=== PATIENT | female | born 1935 | race Caucasian/White ===

== ENCOUNTER 2016-02-14 12:16 | Emergency (ER) | payer MEDICARE ==
[~2016-02-14 12:16] MED LIST: ALEV220T26 PO; IBUP60TA PO; KEFL500C7 PO; LEVA750T PO; LEVO500T32 PO; LORT5TAB PO; LOVE0.4I2 SC; NO MEDICATIONS; NORC5TAB PO; TAMO20TA4 PO; TYLE325T5 PO; VITMTA PO; ZOFR20TA PO
--- NOTE | 2016-02-14 14:00 | REP ---
Clinical: Cough and chills . Comparison: 07/18/2015 . Technique: PA and lateral. Findings: The mediastinum and cardiac silhouette are normal. The lung mao demonstrate chronic stable changes without acute consolidation, effusion, or pneumothorax. The skeletal structures demonstrate osteopenia and degenerative change. Impression: 1. No acute cardiopulmonary process. Signed by Eddie Mclaughlin MD 02/14/2016 01:51 P
--- NOTE | 2016-02-14 14:37 | EDDOCDS ---
Nurse's Notes [facility] Name: Daina Cardenas Age: 80 yrs Sex: Female : 1935 Arrival Date: 02/14/2016 Time: 12:16 Bed TR7 Private MD: Garrison Florian H. Diagnosis: Acute upper respiratory infection, unspecified;Hematuria-reported, intermittent Presentation: 02/13 12:36 Presenting complaint: Patient states: that she hasn't been feeling well lately, nausea, ms18 headache and tired, sneezing, runny nose. Adult Sepsis Screening: The patient does not have new or worsening altered mentation. Patient's respiratory rate is less than 22. Systolic blood pressure is greater than 100. Patient has a qSOFA score of 0- Negative Sepsis Screen. Suicide/Homicide risk assessment- the patient denies having any suicidal and/or homicidal ideations and does not present with any other emotional, behavioral or mental health complaints. Status: Patient is not a vice president consulting services or dependent. Transition of care: patient was not received from another setting of care. 12:36 Acuity: NITIN Level 4 ms18 12:36 Method Of Arrival: Walkin/Carried/Asstd ms18 Triage Assessment: 12:39 General: Appears in no apparent distress, comfortable, Behavior is appropriate for age, ms18 cooperative. Pain: Denies pain. Neurological: No deficits noted. Respiratory: Airway is patent Respiratory effort is even, unlabored. Derm: Skin is pink, warm & dry. normal. Historical: - Allergies: no known allergies; - Home Meds: 1. warfarin 5 mg Oral tab 1 tab once daily 2.5 mg on sunday 2. potassium chloride 10 mEq Oral cpER 1 cap 2 times per day 3. budesonide 3 mg oral CECX 2 caps once daily 4. Culturelle 10 billion cell oral cap daily 5. letrozole 2.5 mg oral tab 1 tab once daily 6. Lialda 1.2 gram oral TbEC 3 tabs once daily - PMHx: Cancer, Breast - Right; Diverticulitis; Crohn's; hypokalemia; pleural effusion; Pneumonia; Pulmonary Embolism; Ulcerative Colitis; - PSHx: Hysterectomy; Mastectomy- Right; - Social history: Smoking status: Patient states former smoker of tobacco. No barriers to communication noted, The patient speaks fluent Kosovan. - Family history: Not pertinent. - : The pt / caregiver states he / she is on anticoagulants: coumadin. Home medication list is obtained from the patient. - Exposure Risk Screening:: None identified. Screenin:33 Screening information is obtained from the patient. Fall risk: No risks identified. ms18 Assistance ADL's: requires no assistance with activities of daily living. Abuse/DV Screen: The patient / caregiver reports he/she is: not in a situation that causes fear, pain or injury. Nutritional screening: No deficits noted. Advance Directives: There is no living will. home support is adequate. Assessment: 14:07 General: Appears in no apparent distress, comfortable. Neurological: Level of ms18 Consciousness is awake, alert, obeys commands, Oriented to person, place, time. Respiratory: Airway is patent Respiratory effort is even, unlabored. Derm: Skin is pink, warm & dry. 14:33 General: Appears in no apparent distress, comfortable, Behavior is appropriate for age, ms18 cooperative. Pain: Denies pain. Neurological: No deficits noted. Respiratory: Airway is patent Respiratory effort is even, unlabored. Derm: Skin is pink, warm & dry. normal. Vital Signs: 12:17 BP 132 / 73; Pulse 86; Resp 18 S; Temp 97.4(O); Pulse Ox 98% on R/A; Weight 61.23 kg gr2 (R); Height 5 ft. 2 in. (157.48 cm) (R); Pain 3/10; 14:29 BP 122 / 70; Pulse 72; Resp 18; Temp 97.1(O); Pulse Ox 96% on R/A; Pain 0/10; ct3 12:17 Body Mass Index 24.69 (61.23 kg, 157.48 cm) gr2 Vitals: 12:17 Log In Time: February 14, 2016 at 12:17. gr2 ED Course: 12:16 Patient visited by Hilary Canales. gr2 12:16 Patient moved to Waiting gr2 12:17 Garrison Florian is Private Physician. gr2 12:18 Patient visited by Hilary Canales. gr2 12:19 Patient moved to Pre RCE gr2 12:37 Triage Initiated ms18 12:45 Patient moved to Triage 3 ct3 13:14 Alfred Mae PA-C is PHCP. ar2 13:14 Nimisha Mcgovern MD is Attending Physician. ar2 13:16 Patient visited by Alfred Mae PA-C. ar2 13:32 Patient moved to TR1 ct3 13:36 -Influenza A&B Rapid Antigen - Nose Sent. ms18 13:36 Urine Culture Sent. ms18 13:36 UA Sent. ms18 13:45 [facility] [place] Payment Agreement was scanned into [employer] and attached to record. jp5 13:58 Patient moved to PD dem1 14:07 Patient visited by Jacqui Wilburn RN. ms18 14:19 Chest, 2 View (pa\E\lat) Returned. EDMS 14:23 Casey Tipton is Referral Physician. ar2 14:23 Garrison Florian is Referral Physician. ar2 14:29 Patient visited by Nicole Wray PCA. ct3 14:32 Patient moved to TR7 ct3 14:33 The patient / caregiver is instructed regarding the plan of care and ED course. ms18 Accompanied by Family Member, Patient has correct armband on for positive identification. Property :Personal belongings accompany Pt. 14:33 No IV's were initiated during this patient's visit. No procedures done that require ms18 assistance. Order Results: Lab Order: UA; SPEC'M 02/14/16 13:32 Test: APPEARANCE, URINE; Value: HAZY; Range: CLEAR; Status: F Test: COLOR, URINE; Value: YELLOW; Range: YELLOW; Status: F Test: PH,URINE; Value: 5.0; Range: 5.0-9.0; Units: UNITS; Status: F Test: SPECIFIC GRAVITY URINE AUTO; Value: 1.020; Range: 1.002-1.035; Status: F Test: PROTEIN, URINE AUTO; Value: 1+; Range: NEGATIVE; Abnormal: Above high normal; Units: mg/dL; Status: F Test: GLUCOSE, URINE (UA) AUTO; Value: NEGATIVE; Range: NEGATIVE; Units: mg/dL; Status: F Test: KETONE, URINE AUTO; Value: NEGATIVE; Range: NEGATIVE; Units: mg/dL; Status: F Test: UROBILINOGEN, URINE AUTO; Value: 2.0; Range: 0.0-2.0; Abnormal: Above high normal; Units: mg/dL; Status: F Test: BILIRUBIN, URINE AUTO; Value: NEGATIVE; Range: NEGATIVE; Status: F Test: NITRITE, URINE AUTO; Value: NEGATIVE; Range: NEGATIVE; Status: F Test: LEUKOCYTE ESTERASE, URINE AUTO; Value: 2+; Range: NEGATIVE; Abnormal: Above high normal; Status: F Test: BLOOD, URINE BLOOD; Value: NEGATIVE; Range: NEGATIVE; Status: F Test: WBC, URINE AUTO; Value: 14; Range: 0-3; Abnormal: Above high normal; Units: /HPF; Status: F Test: RBC, URINE AUTO; Value: 5; Range: 0-3; Abnormal: Above high normal; Units: /HPF; Status: F Test: BACTERIA, URINE AUTO; Value: 2+; Range: NEGATIVE; Abnormal: Above high normal; Status: F Test: SQUAMOUS EPITHELIAL CELL UR AU; Value: 0; Range: 0-6; Units: /HPF; Status: F Test: MUCUS, URINE; Value: SMALL; Range: NEGATIVE; Status: F Test: HYALINE CAST, URINE AUTO; Value: 0; Range: 0-1; Units: /LPF; Status: F Lab Order: -Influenza A&B Rapid Antigen - Nose; SPEC'M 02/14/16 13:32 Test: INFLUENZA A RAPID SCR by ICA; Value: INFLUENZA A RESULTS NEGATIVE; Status: F Test: INFLUENZA A RAPID SCR by ICA; Value: Comments:; Status: F Test: INFLUENZA B RAPID SCR by ICA; Value: INFLUENZA B RESULTS NEGATIVE; Status: F Test Note: ; The Influenza test is a direct rapid immunoassay for the qualitative detection of Influenza viral antigen. Cell culture (Viral Culture) testing should be considered to confirm NEGATIVE results and to assist in detecting other viruses that can provide similar clinical symptoms. Please contact the lab within 24 hours ([phone]) if confirmatory testing is desired. Radiology Order: Chest, 2 View (pa\E\lat) Test: Chest, 2 View (pa\E\lat) REASON FOR EXAMINATION: cough, chills; Clinical: Cough and chills .; ; Comparison: 07/18/2015 .; ; Technique: PA and lateral.; ; Findings:; The mediastinum and cardiac silhouette are normal. The lung mao demonstrate; chronic stable changes without acute consolidation, effusion, or pneumothorax.; The skeletal structures demonstrate osteopenia and degenerative change.; ; Impression:; 1. No acute cardiopulmonary process.; ; ; Signed by; Eddie Mclaughlin MD 02/14/2016 01:51 P; Outcome: 14:24 Discharge ordered by Provider. ar2 14:33 Discharge Assessment: Patient awake, alert and oriented x 3. No cognitive and/or ms18 functional deficits noted. Patient verbalized understanding of disposition instructions. patient administered narcotics - no. The following High Risk Discharge criteria are identified: None. Discharged to home ambulatory. Condition: good Condition: stable Condition: improved. Discharge instructions given to patient, Instructed on discharge instructions, follow up and referral plans. medication usage, Demonstrated understanding of instructions, medications, Pt was receptive of discharge instructions/ teaching. Prescriptions given X 1. No special radiology studies were completed. 14:36 Patient left the ED. ms18 Signatures: Dispatcher [employer] EDMS Alfred Mae, PARoland PA-C ar2 Nicole Wray, STRUCTURES ENGINEER STRUCTURES ENGINEER ct3 Eduin Cardona1 Hilary Canales gr2 Jacqui Wilburn,TITUS RN ms18 David Ritchie jp5 [facility] CENTERD[facility]
--- NOTE | 2016-02-14 14:38 | EDDOCDS ---
Physician Documentation [facility] Name: Daina Cardenas Age: 80 yrs Sex: Female : 1935 Arrival Date: 02/14/2016 Time: 12:16 Bed TR7 Private MD: Garrison Florian H. Disposition: 02/14/16 14:24 Discharged to Home/Self Care. Impression: Acute upper respiratory infection, unspecified, Hematuria - reported, intermittent. - Condition is Stable. - Discharge Instructions: Hematuria, Adult, Upper Respiratory Infection, Adult. - Prescriptions for ZOFRAN ODT 4 mg - dissolve 1 tablet by ORAL route 4 times per day As needed do not chew, do not swallow whole; 10 tablet. - Medication Reconciliation, Local Pharmacy Hours form. - Follow up: Casey Tipton; When: Call to arrange an appointment; Reason: Further diagnostic work-up, Recheck today's complaints. Follow up: Garrison Florian; When: 2 - 3 days; Reason: Recheck today's complaints. Follow up: Emergency Department; When: As needed; Reason: Fever > 102F, Worsening of conditions. - Problem is new. - Symptoms are unchanged. Historical: - Allergies: no known allergies; - Home Meds: 1. warfarin 5 mg Oral tab 1 tab once daily 2.5 mg on sunday 2. potassium chloride 10 mEq Oral cpER 1 cap 2 times per day 3. budesonide 3 mg oral CECX 2 caps once daily 4. Culturelle 10 billion cell oral cap daily 5. letrozole 2.5 mg oral tab 1 tab once daily 6. Lialda 1.2 gram oral TbEC 3 tabs once daily - PMHx: Cancer, Breast - Right; Diverticulitis; Crohn's; hypokalemia; pleural effusion; Pneumonia; Pulmonary Embolism; Ulcerative Colitis; - PSHx: Hysterectomy; Mastectomy- Right; - Social history: Smoking status: Patient states former smoker of tobacco. No barriers to communication noted, The patient speaks fluent [place] Islander. - Family history: Not pertinent. - : The pt / caregiver states he / she is on anticoagulants: coumadin. Home medication list is obtained from the patient. - Exposure Risk Screening:: None identified. Vital Signs: 02/13 12:17 BP 132 / 73; Pulse 86; Resp 18 S; Temp 97.4(O); Pulse Ox 98% on R/A; Weight 61.23 kg / gr2 134.99 lbs (R); Height 5 ft. 2 in. (157.48 cm) (R); Pain 3/10; 14:29 BP 122 / 70; Pulse 72; Resp 18; Temp 97.1(O); Pulse Ox 96% on R/A; Pain 0/10; ct3 12:17 Body Mass Index 24.69 (61.23 kg, 157.48 cm) gr2 MDM: 13:24 Obtain sample by nasopharyngeal swab ordered. ar2 13:25 UA Ordered. EDMS 13:25 Urine Culture Ordered. EDMS 13:25 -Influenza A&B Rapid Antigen - Nose Ordered. EDMS 13:25 Chest, 2 View (pa\E\lat) Ordered. EDMS 13:45 [facility] Payment Agreement was scanned into [employer] and attached to record. jp5 13:45 Financial registration complete. jp5 14:08 UA Reviewed. ar2 14:08 -Influenza A&B Rapid Antigen - Nose Reviewed. ar2 Signatures: Dispatcher [employer] EDMS Alfred Mae PA-C PAGonzaloC ar2 Jaqcui Wilburn,RN RN ms18 David Ritchie jp5 The chart was reviewed and I authenticate all verbal orders and agree with the evaluation and treatment provided.Attachments: 13:45 [facility] Payment Agreement jp5 MTDD
--- NOTE | 2016-02-16 15:37 | EDDOCDS ---
Physician Documentation [facility] Name: Daina Cardenas Age: 80 yrs Sex: Female : 1935 Arrival Date: 02/14/2016 Time: 12:16 Bed TR7 Private MD: Garrison Florian H. Disposition: 02/14/16 14:24 Discharged to Home/Self Care. Impression: Acute upper respiratory infection, unspecified, Hematuria - reported, intermittent. - Condition is Stable. - Discharge Instructions: Hematuria, Adult, Upper Respiratory Infection, Adult. - Prescriptions for ZOFRAN ODT 4 mg - dissolve 1 tablet by ORAL route 4 times per day As needed do not chew, do not swallow whole; 10 tablet. - Medication Reconciliation, Local Pharmacy Hours form. - Follow up: Casey Tipton; When: Call to arrange an appointment; Reason: Further diagnostic work-up, Recheck today's complaints. Follow up: Garrison Florian; When: 2 - 3 days; Reason: Recheck today's complaints. Follow up: Emergency Department; When: As needed; Reason: Fever > 102F, Worsening of conditions. - Problem is new. - Symptoms are unchanged. Historical: - Allergies: no known allergies; - Home Meds: 1. warfarin 5 mg Oral tab 1 tab once daily 2.5 mg on sunday 2. potassium chloride 10 mEq Oral cpER 1 cap 2 times per day 3. budesonide 3 mg oral CECX 2 caps once daily 4. Culturelle 10 billion cell oral cap daily 5. letrozole 2.5 mg oral tab 1 tab once daily 6. Lialda 1.2 gram oral TbEC 3 tabs once daily - PMHx: Cancer, Breast - Right; Diverticulitis; Crohn's; hypokalemia; pleural effusion; Pneumonia; Pulmonary Embolism; Ulcerative Colitis; - PSHx: Hysterectomy; Mastectomy- Right; - Social history: Smoking status: Patient states former smoker of tobacco. No barriers to communication noted, The patient speaks fluent Iraqi. - Family history: Not pertinent. - : The pt / caregiver states he / she is on anticoagulants: coumadin. Home medication list is obtained from the patient. - Exposure Risk Screening:: None identified. Vital Signs: 02/13 12:17 BP 132 / 73; Pulse 86; Resp 18 S; Temp 97.4(O); Pulse Ox 98% on R/A; Weight 61.23 kg / gr2 134.99 lbs (R); Height 5 ft. 2 in. (157.48 cm) (R); Pain 3/10; 14:29 BP 122 / 70; Pulse 72; Resp 18; Temp 97.1(O); Pulse Ox 96% on R/A; Pain 0/10; ct3 12:17 Body Mass Index 24.69 (61.23 kg, 157.48 cm) gr2 MDM: 13:24 Obtain sample by nasopharyngeal swab ordered. ar2 13:25 UA Ordered. EDMS 13:25 Urine Culture Ordered. EDMS 13:25 -Influenza A&B Rapid Antigen - Nose Ordered. EDMS 13:25 Chest, 2 View (pa\E\lat) Ordered. EDMS 13:45 [facility] Payment Agreement was scanned into [employer] and attached to record. jp5 13:45 Financial registration complete. jp5 14:08 UA Reviewed. ar2 14:08 -Influenza A&B Rapid Antigen - Nose Reviewed. ar2 02/14 06:40 T-Sheet-- Draft Copy was scanned into [employer] and attached to record. lja 10:49 Radiology Report was scanned into [employer] and attached to record. gb Signatures: Dispatcher [employer] EDMN Miguelina Thrasher, Reg Reg Alfred Evangelista, PAGonzaloC PAGonzaloC ar2 Jacqui Wilburn,RN RN ms18 Arel, David Blue jp5 The chart was reviewed and I authenticate all verbal orders and agree with the evaluation and treatment provided.Attachments: 02/13 13:45 [facility] Payment Agreement 5 02/14 06:40 T-Sheet-- Draft Copy lja Chart Complete MTDD
--- NOTE | 2016-02-16 15:37 | EDDOCDS ---
Physician Documentation [facility] Name: Daina Cardenas Age: 80 yrs Sex: Female : 1935 Arrival Date: 02/14/2016 Time: 12:16 Bed TR7 Private MD: Garrison Florian H. Disposition: 02/14/16 14:24 Discharged to Home/Self Care. Impression: Acute upper respiratory infection, unspecified, Hematuria - reported, intermittent. - Condition is Stable. - Discharge Instructions: Hematuria, Adult, Upper Respiratory Infection, Adult. - Prescriptions for ZOFRAN ODT 4 mg - dissolve 1 tablet by ORAL route 4 times per day As needed do not chew, do not swallow whole; 10 tablet. - Medication Reconciliation, Local Pharmacy Hours form. - Follow up: Casey Tipton; When: Call to arrange an appointment; Reason: Further diagnostic work-up, Recheck today's complaints. Follow up: Garrison Florian; When: 2 - 3 days; Reason: Recheck today's complaints. Follow up: Emergency Department; When: As needed; Reason: Fever > 102F, Worsening of conditions. - Problem is new. - Symptoms are unchanged. Historical: - Allergies: no known allergies; - Home Meds: 1. warfarin 5 mg Oral tab 1 tab once daily 2.5 mg on sunday 2. potassium chloride 10 mEq Oral cpER 1 cap 2 times per day 3. budesonide 3 mg oral CECX 2 caps once daily 4. Culturelle 10 billion cell oral cap daily 5. letrozole 2.5 mg oral tab 1 tab once daily 6. Lialda 1.2 gram oral TbEC 3 tabs once daily - PMHx: Cancer, Breast - Right; Diverticulitis; Crohn's; hypokalemia; pleural effusion; Pneumonia; Pulmonary Embolism; Ulcerative Colitis; - PSHx: Hysterectomy; Mastectomy- Right; - Social history: Smoking status: Patient states former smoker of tobacco. No barriers to communication noted, The patient speaks fluent Jordanian. - Family history: Not pertinent. - : The pt / caregiver states he / she is on anticoagulants: coumadin. Home medication list is obtained from the patient. - Exposure Risk Screening:: None identified. Vital Signs: 02/13 12:17 BP 132 / 73; Pulse 86; Resp 18 S; Temp 97.4(O); Pulse Ox 98% on R/A; Weight 61.23 kg / gr2 134.99 lbs (R); Height 5 ft. 2 in. (157.48 cm) (R); Pain 3/10; 14:29 BP 122 / 70; Pulse 72; Resp 18; Temp 97.1(O); Pulse Ox 96% on R/A; Pain 0/10; ct3 12:17 Body Mass Index 24.69 (61.23 kg, 157.48 cm) gr2 MDM: 13:24 Obtain sample by nasopharyngeal swab ordered. ar2 13:25 UA Ordered. EDMS 13:25 Urine Culture Ordered. EDMS 13:25 -Influenza A&B Rapid Antigen - Nose Ordered. EDMS 13:25 Chest, 2 View (pa\E\lat) Ordered. EDMS 13:45 [facility] Payment Agreement was scanned into [email or web address] and attached to record. jp5 13:45 Financial registration complete. jp5 14:08 UA Reviewed. ar2 14:08 -Influenza A&B Rapid Antigen - Nose Reviewed. ar2 02/14 06:40 T-Sheet-- Draft Copy was scanned into [email or web address] and attached to record. lja 10:49 Radiology Report was scanned into [email or web address] and attached to record. gb Signatures: Dispatcher [employer] EDKS Miguelina Thrasher, Reg Reg Alfred Evangelista, PAGonzaloC PAGonzaloC ar2 Jacqui Wilburn,RN RN ms18 Arel, David Blue jp5 The chart was reviewed and I authenticate all verbal orders and agree with the evaluation and treatment provided.Attachments: 02/13 13:45 [facility] Payment Agreement 5 02/14 06:40 T-Sheet-- Draft Copy lja Chart Complete MTDD
--- NOTE | 2016-02-16 15:38 | EDDOCDS ---
Nurse's Notes [facility] Name: Daina Cardenas Age: 80 yrs Sex: Female : 1935 Arrival Date: 02/14/2016 Time: 12:16 Bed TR7 Private MD: Garrison Florian H. Diagnosis: Acute upper respiratory infection, unspecified;Hematuria-reported, intermittent Presentation: 02/13 12:36 Presenting complaint: Patient states: that she hasn't been feeling well lately, nausea, ms18 headache and tired, sneezing, runny nose. Adult Sepsis Screening: The patient does not have new or worsening altered mentation. Patient's respiratory rate is less than 22. Systolic blood pressure is greater than 100. Patient has a qSOFA score of 0- Negative Sepsis Screen. Suicide/Homicide risk assessment- the patient denies having any suicidal and/or homicidal ideations and does not present with any other emotional, behavioral or mental health complaints. Status: Patient is not a answering service agent or dependent. Transition of care: patient was not received from another setting of care. 12:36 Acuity: NITIN Level 4 ms18 12:36 Method Of Arrival: Walkin/Carried/Asstd ms18 Triage Assessment: 12:39 General: Appears in no apparent distress, comfortable, Behavior is appropriate for age, ms18 cooperative. Pain: Denies pain. Neurological: No deficits noted. Respiratory: Airway is patent Respiratory effort is even, unlabored. Derm: Skin is pink, warm & dry. normal. Historical: - Allergies: no known allergies; - Home Meds: 1. warfarin 5 mg Oral tab 1 tab once daily 2.5 mg on sunday 2. potassium chloride 10 mEq Oral cpER 1 cap 2 times per day 3. budesonide 3 mg oral CECX 2 caps once daily 4. Culturelle 10 billion cell oral cap daily 5. letrozole 2.5 mg oral tab 1 tab once daily 6. Lialda 1.2 gram oral TbEC 3 tabs once daily - PMHx: Cancer, Breast - Right; Diverticulitis; Crohn's; hypokalemia; pleural effusion; Pneumonia; Pulmonary Embolism; Ulcerative Colitis; - PSHx: Hysterectomy; Mastectomy- Right; - Social history: Smoking status: Patient states former smoker of tobacco. No barriers to communication noted, The patient speaks fluent Indian. - Family history: Not pertinent. - : The pt / caregiver states he / she is on anticoagulants: coumadin. Home medication list is obtained from the patient. - Exposure Risk Screening:: None identified. Screenin:33 Screening information is obtained from the patient. Fall risk: No risks identified. ms18 Assistance ADL's: requires no assistance with activities of daily living. Abuse/DV Screen: The patient / caregiver reports he/she is: not in a situation that causes fear, pain or injury. Nutritional screening: No deficits noted. Advance Directives: There is no living will. home support is adequate. Assessment: 14:07 General: Appears in no apparent distress, comfortable. Neurological: Level of ms18 Consciousness is awake, alert, obeys commands, Oriented to person, place, time. Respiratory: Airway is patent Respiratory effort is even, unlabored. Derm: Skin is pink, warm & dry. 14:33 General: Appears in no apparent distress, comfortable, Behavior is appropriate for age, ms18 cooperative. Pain: Denies pain. Neurological: No deficits noted. Respiratory: Airway is patent Respiratory effort is even, unlabored. Derm: Skin is pink, warm & dry. normal. Vital Signs: 12:17 BP 132 / 73; Pulse 86; Resp 18 S; Temp 97.4(O); Pulse Ox 98% on R/A; Weight 61.23 kg gr2 (R); Height 5 ft. 2 in. (157.48 cm) (R); Pain 3/10; 14:29 BP 122 / 70; Pulse 72; Resp 18; Temp 97.1(O); Pulse Ox 96% on R/A; Pain 0/10; ct3 12:17 Body Mass Index 24.69 (61.23 kg, 157.48 cm) gr2 Vitals: 12:17 Log In Time: February 14, 2016 at 12:17. gr2 ED Course: 12:16 Patient visited by Hilary Canales. gr2 12:16 Patient moved to Waiting gr2 12:17 Garrison Florian is Private Physician. gr2 12:18 Patient visited by Hilary Canales. gr2 12:19 Patient moved to Pre RCE gr2 12:37 Triage Initiated ms18 12:45 Patient moved to Triage 3 ct3 13:14 Alfred Mae PA-C is PHCP. ar2 13:14 Nimisha Mcgovern MD is Attending Physician. ar2 13:16 Patient visited by Alfred Mae PA-C. ar2 13:32 Patient moved to TR1 ct3 13:36 -Influenza A&B Rapid Antigen - Nose Sent. ms18 13:36 Urine Culture Sent. ms18 13:36 UA Sent. ms18 13:45 [facility] [place] was scanned into zulily and attached to record. jp5 13:58 Patient moved to PD dem1 14:07 Patient visited by Jacqui Wilburn RN. ms18 14:19 Chest, 2 View (pa\E\lat) Returned. EDMS 14:23 Casey Tipton is Referral Physician. ar2 14:23 Garrison Florian is Referral Physician. ar2 14:29 Patient visited by Nicole Wray PCA. ct3 14:32 Patient moved to TR7 ct3 14:33 The patient / caregiver is instructed regarding the plan of care and ED course. ms18 Accompanied by Family Member, Patient has correct armband on for positive identification. Property :Personal belongings accompany Pt. 14:33 No IV's were initiated during this patient's visit. No procedures done that require ms18 assistance. 02/14 06:40 T-Sheet-- Draft Copy was scanned into zulily and attached to record. lja 10:49 Radiology Report was scanned into zulily and attached to record. gb Order Results: Lab Order: UA; SPEC'M 02/14/16 13:32 Test: APPEARANCE, URINE; Value: HAZY; Range: CLEAR; Status: F Test: COLOR, URINE; Value: YELLOW; Range: YELLOW; Status: F Test: PH,URINE; Value: 5.0; Range: 5.0-9.0; Units: UNITS; Status: F Test: SPECIFIC GRAVITY URINE AUTO; Value: 1.020; Range: 1.002-1.035; Status: F Test: PROTEIN, URINE AUTO; Value: 1+; Range: NEGATIVE; Abnormal: Above high normal; Units: mg/dL; Status: F Test: GLUCOSE, URINE (UA) AUTO; Value: NEGATIVE; Range: NEGATIVE; Units: mg/dL; Status: F Test: KETONE, URINE AUTO; Value: NEGATIVE; Range: NEGATIVE; Units: mg/dL; Status: F Test: UROBILINOGEN, URINE AUTO; Value: 2.0; Range: 0.0-2.0; Abnormal: Above high normal; Units: mg/dL; Status: F Test: BILIRUBIN, URINE AUTO; Value: NEGATIVE; Range: NEGATIVE; Status: F Test: NITRITE, URINE AUTO; Value: NEGATIVE; Range: NEGATIVE; Status: F Test: LEUKOCYTE ESTERASE, URINE AUTO; Value: 2+; Range: NEGATIVE; Abnormal: Above high normal; Status: F Test: BLOOD, URINE BLOOD; Value: NEGATIVE; Range: NEGATIVE; Status: F Test: WBC, URINE AUTO; Value: 14; Range: 0-3; Abnormal: Above high normal; Units: /HPF; Status: F Test: RBC, URINE AUTO; Value: 5; Range: 0-3; Abnormal: Above high normal; Units: /HPF; Status: F Test: BACTERIA, URINE AUTO; Value: 2+; Range: NEGATIVE; Abnormal: Above high normal; Status: F Test: SQUAMOUS EPITHELIAL CELL UR AU; Value: 0; Range: 0-6; Units: /HPF; Status: F Test: MUCUS, URINE; Value: SMALL; Range: NEGATIVE; Status: F Test: HYALINE CAST, URINE AUTO; Value: 0; Range: 0-1; Units: /LPF; Status: F Lab Order: Urine Culture; SPEC'M 02/14/16 13:32 Test: URINE CULTURE; Value: URINE CULTURE RESULT SPECIMEN APPEARS CONTAMINATED; Status: F Lab Order: -Influenza A&B Rapid Antigen - Nose; SPEC'M 02/14/16 13:32 Test: INFLUENZA A RAPID SCR by ICA; Value: INFLUENZA A RESULTS NEGATIVE; Status: F Test: INFLUENZA A RAPID SCR by ICA; Value: Comments:; Status: F Test: INFLUENZA B RAPID SCR by ICA; Value: INFLUENZA B RESULTS NEGATIVE; Status: F Test Note: ; The Influenza test is a direct rapid immunoassay for the qualitative detection of Influenza viral antigen. Cell culture (Viral Culture) testing should be considered to confirm NEGATIVE results and to assist in detecting other viruses that can provide similar clinical symptoms. Please contact the lab within 24 hours ([phone]) if confirmatory testing is desired. Radiology Order: Chest, 2 View (pa\E\lat) Test: Chest, 2 View (pa\E\lat) REASON FOR EXAMINATION: cough, chills; Clinical: Cough and chills .; ; Comparison: 07/18/2015 .; ; Technique: PA and lateral.; ; Findings:; The mediastinum and cardiac silhouette are normal. The lung mao demonstrate; chronic stable changes without acute consolidation, effusion, or pneumothorax.; The skeletal structures demonstrate osteopenia and degenerative change.; ; Impression:; 1. No acute cardiopulmonary process.; ; ; Signed by; Eddie Mclaughlin MD 02/14/2016 01:51 P; Outcome: 02/13 14:24 Discharge ordered by Provider. ar2 14:33 Discharge Assessment: Patient awake, alert and oriented x 3. No cognitive and/or ms18 functional deficits noted. Patient verbalized understanding of disposition instructions. patient administered narcotics - no. The following High Risk Discharge criteria are identified: None. Discharged to home ambulatory. Condition: good Condition: stable Condition: improved. Discharge instructions given to patient, Instructed on discharge instructions, follow up and referral plans. medication usage, Demonstrated understanding of instructions, medications, Pt was receptive of discharge instructions/ teaching. Prescriptions given X 1. No special radiology studies were completed. 14:36 Patient left the ED. ms18 Signatures: Dispatcher [employer] EDMS Miguelina Thrasher, Reg Reg gb Alfred Mae, PA-C PA-C ar2 Nicole Wray, SRIDHAR SINTER FEEDER ct3 Eduin Cardona1 Hilary Canales gr2 Jacqui Wilburn,TITUS RN ms18 Arel, David Blue jp5 Chart Complete MTDD
== END 2016-02-14 14:36 | disposition home or self-care (01) ==
LOC: M ED 12:16
DX: R31.9 Hematuria, unspecified (principal); J06.9 Acute upper respiratory infection, unspecified; K50.90 Crohn's disease, unspecified, without complications; K57.93 Diverticulitis of intestine, part unspecified, without perforation or abscess with bleeding; E87.6 Hypokalemia; Z85.3 Personal history of malignant neoplasm of breast; Z90.11 Acquired absence of right breast and nipple; Z86.711 Personal history of pulmonary embolism; Z87.891 Personal history of nicotine dependence; Z79.01 Long term (current) use of anticoagulants; Z79.899 Other long term (current) drug therapy; Z87.09 Personal history of other diseases of the respiratory system

== ENCOUNTER → 2016-03-03 | Outpatient (CLI) | payer MEDICARE | LOC: M LAB 14:32 | PROVIDERS: ATTEND Internal Medicine Gastroenterology | DX: K51.90 Ulcerative colitis, unspecified, without complications (principal) ==

== ENCOUNTER → 2016-05-01 | Outpatient (REF) | payer MEDICARE | LOC: M LAB REF 16:56 | PROVIDERS: ATTEND Obstetrics & Gynecology | DX: R39.89 Other symptoms and signs involving the genitourinary system (principal) ==

== ENCOUNTER → 2016-05-10 | Outpatient (REF) | payer MEDICARE | LOC: M LAB REF 17:08 | PROVIDERS: ATTEND Obstetrics & Gynecology | DX: R39.89 Other symptoms and signs involving the genitourinary system (principal); R31.9 Hematuria, unspecified ==

== ENCOUNTER → 2017-11-09 | Outpatient (CLI) | payer MEDICARE ==
[2017-11-09 13:56] LABS: INR 2.82; PROTHROMBIN TIME 30.3 SECONDS (12.1-14.4)
== END ==
LOC: M LAB 13:02
DX: Z51.81 Encounter for therapeutic drug level monitoring (principal); Z79.01 Long term (current) use of anticoagulants
CPT/HCPCS: 85610

== ENCOUNTER 2017-11-30 22:08 | Observation (INO) | payer MEDICARE ==
[2017-11-30] MEDS: NS 500 ML IV (23:20)
[2017-11-30] MEDS: ONDANSETRON 4MG/2ML VIAL (J2405) IV (23:58)
[2017-12-01 00:15] LABS: BASO % 0.2 % (0.0-1.0); EOS # 0.1 10^3/uL (0.0-0.50); EOS % 0.7 % (0.0-3.0); HEMATOCRIT 37.1 % (36.0-47.0); HEMOGLOBIN 12.6 g/dl (12.0-15.5); IMMATURE GRANULOCYTE % 0.5 % (0-3.0); LYMPH # 1.8 10^3/uL (1.5-4.5); LYMPH % 10.6 % (24.0-44.0); MEAN CORPUSCULAR HEMOGLOBIN 32.7 pg (27.0-33.0); MEAN CORPUSCULAR VOLUME 96.4 fl (80.0-96.0); MONO # 1.6 10^3/uL (0.0-0.8); MONO % 9.5 % (0.0-5.0); NEUTROPHILS % 78.5 % (36.0-66.0); PLATELET COUNT, AUTOMATED 259 10^3/uL (150-450); RED BLOOD COUNT 3.85 10^6/uL (4.00-5.40); RED CELL DISTRIBUTION WIDTH 13.8 % (11.5-14.5); VENOUS BASE EXCESS -0.3 (-2.0-2.0); VENOUS HCO3 24.9 MEQ/L (23.0-27.0); VENOUS O2 SATURATION 57.8 % (60.0-80.0); VENOUS PARTIAL PRESSURE CO2 42.8 mmHg (38.0-50.0); VENOUS PARTIAL PRESSURE O2 28.8 mmHg (30.0-50.0); VENOUS PH 7.382 UNITS (7.330-7.430); VENOUS STANDARD HCO3 23.3 MEQ/L; VENOUS TOTAL CO2 26.2 MEQ/L (24.0-28.0); WHITE BLOOD COUNT 16.5 10^3/uL (4.0-10.0)
[2017-12-01 00:33] LABS: INR 2.54; PROTHROMBIN TIME 27.9 SECONDS (12.1-14.4)
[2017-12-01 00:34] LABS: PARTIAL THROMBOPLASTIN TIME 40.7 SECONDS (25.4-37.6)
[2017-12-01 00:41] LABS: ALBUMIN 3.4 GM/DL (3.2-5.2); ALBUMIN/GLOBULIN RATIO 0.85 (1.00-1.93); ALKALINE PHOSPHATASE 89 U/L (45-117); ALT/SGPT 18 U/L (12-78); AMYLASE 78 U/L (25-115); ANION GAP 11 MEQ/L (8-16); AST/SGOT 17 U/L (7-37); BILIRUBIN,DIRECT < 0.1 MG/DL (0.0-0.2); BILIRUBIN,TOTAL 0.2 MG/DL (0.2-1.0); BLOOD UREA NITROGEN 22 MG/DL (7-18); CALCIUM LEVEL 8.3 MG/DL (8.8-10.2); CARBON DIOXIDE LEVEL 24 MEQ/L (21-32); CHLORIDE LEVEL 104 MEQ/L (98-107); CPK CREATINE PHOSPHOKINASE 100 U/L (26-192); GLOMERULAR FILTRATION RATE 38.2 (>32); GLUCOSE, FASTING 88 MG/DL (70-100); LIPASE 220 U/L (73-393); POTASSIUM SERUM 4.4 MEQ/L (3.5-5.1); SODIUM LEVEL 139 MEQ/L (136-145); TOTAL PROTEIN 7.4 GM/DL (6.4-8.2); TROPONIN I < 0.02 NG/ML (< 0.10)
[2017-12-01] MEDS ORDERED: ISOVUE-370 76% 100ML VIAL (Q9967) As Ordered (00:44)
[2017-12-01] MEDS: NS 500 ML IV (01:42)
[2017-12-01] MEDS ORDERED: ONDANSETRON 4MG/2ML VIAL (J2405) IV (02:45)
[2017-12-01] MEDS ORDERED: ACETAMINOPHEN TAB 650MG DOSE (2X325MG) PO (02:45)
[2017-12-01] MEDS: NS 1,000 ML IV ×3 (03:56→20:42)
[2017-12-01 04:16] LABS: KETONE, URINE AUTO RFX NEGATIVE (NEGATIVE); LEUKOCYTE ESTERASE UR AUTO RFX 2+ (NEGATIVE); NITRITE, URINE AUTO RFX POSITIVE (NEGATIVE); RBC, URINE AUTO RFX 1 /HPF (0-3); SPECIFIC GRAVITY UR AUTO RFX 1.043 (1.002-1.035); SQUAM EPITHELIAL CELL UR AURFX 1 /HPF (0-6); WBC, URINE AUTO RFX 8 /HPF (0-3)
[2017-12-01 06:23] LABS: HEMATOCRIT 33.9 % (36.0-47.0); MEAN CORPUSCULAR HEMOGLOBIN 31.8 pg (27.0-33.0); MEAN CORPUSCULAR HGB CONC 32.4 g/dl (32.0-36.5); PLATELET COUNT, AUTOMATED 210 10^3/uL (150-450); RED BLOOD COUNT 3.46 10^6/uL (4.00-5.40); RED CELL DISTRIBUTION WIDTH 13.8 % (11.5-14.5); WHITE BLOOD COUNT 10.8 10^3/uL (4.0-10.0)
[2017-12-01 06:48] LABS: ANION GAP 7 MEQ/L (8-16); BLOOD UREA NITROGEN 16 MG/DL (7-18); CALCIUM LEVEL 7.8 MG/DL (8.8-10.2); CARBON DIOXIDE LEVEL 25 MEQ/L (21-32); CHLORIDE LEVEL 110 MEQ/L (98-107); CREATININE FOR GFR 1.06 MG/DL (0.55-1.30); GLOMERULAR FILTRATION RATE 52.7 (>32); GLUCOSE, FASTING 86 MG/DL (70-100); POTASSIUM SERUM 4.1 MEQ/L (3.5-5.1); SODIUM LEVEL 142 MEQ/L (136-145)
[2017-12-01] MEDS: LETROZOLE 2.5 MG TAB PO (10:00)
[2017-12-01] MEDS: FERROUS SULFATE 325MG TAB PO (10:00)
[2017-12-01] MEDS: POTASSIUM CHLORIDE 10 MEQ SR TABLET PO ×2 (10:01→20:24)
[2017-12-01] MEDS: MESALAMINE 400 MG CAPSULE DELAYED RELEASE (DELZICOL) PO ×2 (16:46→20:41)
[2017-12-01] MEDS: WARFARIN SOD 5 MG TAB PO (16:46)
[2017-12-02 04:39] LABS: HEMOGLOBIN 9.7 g/dl (12.0-15.5); MEAN CORPUSCULAR HEMOGLOBIN 32.4 pg (27.0-33.0); MEAN CORPUSCULAR HGB CONC 32.3 g/dl (32.0-36.5); MEAN CORPUSCULAR VOLUME 100.3 fl (80.0-96.0); PLATELET COUNT, AUTOMATED 196 10^3/uL (150-450); RED BLOOD COUNT 2.99 10^6/uL (4.00-5.40); RED CELL DISTRIBUTION WIDTH 14.2 % (11.5-14.5); WHITE BLOOD COUNT 10.1 10^3/uL (4.0-10.0)
[2017-12-02 04:58] LABS: INR 2.58; PROTHROMBIN TIME 28.2 SECONDS (12.1-14.4)
[2017-12-02 05:04] LABS: ANION GAP 8 MEQ/L (8-16); BLOOD UREA NITROGEN 15 MG/DL (7-18); CALCIUM LEVEL 7.1 MG/DL (8.8-10.2); CARBON DIOXIDE LEVEL 23 MEQ/L (21-32); CHLORIDE LEVEL 116 MEQ/L (98-107); CREATININE FOR GFR 1.05 MG/DL (0.55-1.30); GLOMERULAR FILTRATION RATE 53.3 (>32); GLUCOSE, FASTING 81 MG/DL (70-100); POTASSIUM SERUM 4.4 MEQ/L (3.5-5.1); SODIUM LEVEL 147 MEQ/L (136-145)
[2017-12-02] MEDS: NS 1,000 ML IV (05:44)
[2017-12-02 07:35] LABS: C REACTIVE PROTEIN QUANTITATIV 0.32 MG/DL (0.00-0.30)
[2017-12-02 07:56] LABS: ERYTHROCYTE SEDIMENTATION RATE 48 mm/hr (0-30)
[2017-12-02] MEDS: MESALAMINE 400 MG CAPSULE DELAYED RELEASE (DELZICOL) PO ×3 (09:20→19:48)
[2017-12-02] MEDS: LETROZOLE 2.5 MG TAB PO (09:21)
[2017-12-02] MEDS: FERROUS SULFATE 325MG TAB PO (09:21)
[2017-12-02] MEDS: POTASSIUM CHLORIDE 10 MEQ SR TABLET PO ×2 (09:21→20:39)
[2017-12-02] MEDS: WARFARIN SOD 5 MG TAB PO (16:48)
[2017-12-03 04:14] LABS: HEMOGLOBIN 10.4 g/dl (12.0-15.5); MEAN CORPUSCULAR HEMOGLOBIN 31.9 pg (27.0-33.0); MEAN CORPUSCULAR HGB CONC 32.5 g/dl (32.0-36.5); MEAN CORPUSCULAR VOLUME 98.2 fl (80.0-96.0); PLATELET COUNT, AUTOMATED 201 10^3/uL (150-450); RED BLOOD COUNT 3.26 10^6/uL (4.00-5.40); RED CELL DISTRIBUTION WIDTH 13.9 % (11.5-14.5); WHITE BLOOD COUNT 10.7 10^3/uL (4.0-10.0)
[2017-12-03 04:26] LABS: INR 2.61; PROTHROMBIN TIME 28.5 SECONDS (12.1-14.4)
[2017-12-03 04:39] LABS: ANION GAP 5 MEQ/L (8-16); BLOOD UREA NITROGEN 16 MG/DL (7-18); CALCIUM LEVEL 8.2 MG/DL (8.8-10.2); CARBON DIOXIDE LEVEL 25 MEQ/L (21-32); CHLORIDE LEVEL 115 MEQ/L (98-107); CREATININE FOR GFR 1.01 MG/DL (0.55-1.30); GLOMERULAR FILTRATION RATE 55.7 (>32); GLUCOSE, FASTING 89 MG/DL (70-100); POTASSIUM SERUM 4.3 MEQ/L (3.5-5.1); SODIUM LEVEL 145 MEQ/L (136-145)
[2017-12-03] MEDS: FERROUS SULFATE 325MG TAB PO (08:03)
[2017-12-03] MEDS: POTASSIUM CHLORIDE 10 MEQ SR TABLET PO (08:03)
[2017-12-03] MEDS: LETROZOLE 2.5 MG TAB PO (08:04)
[2017-12-03] MEDS: MESALAMINE 400 MG CAPSULE DELAYED RELEASE (DELZICOL) PO (08:06)
[2017-12-03] MEDS ORDERED: WARFARIN SOD 2.5 MG TAB PO (17:00)
== END 2017-12-03 09:20 | disposition home or self-care (01) ==
LOC: M ED 22:08 → M ED INP 22:09 → M ICU 12-01 04:46
DX: R55 Syncope and collapse (principal); K51.90 Ulcerative colitis, unspecified, without complications; B96.1 Klebsiella pneumoniae [K. pneumoniae] as the cause of diseases classified elsewhere; R78.81 Bacteremia; I26.99 Other pulmonary embolism without acute cor pulmonale; R19.7 Diarrhea, unspecified; Z79.01 Long term (current) use of anticoagulants; D50.9 Iron deficiency anemia, unspecified; N17.9 Acute kidney failure, unspecified; Z79.890 Hormone replacement therapy; Z79.899 Other long term (current) drug therapy
CPT/HCPCS: J2405

== ENCOUNTER 2018-01-19 13:48 | Emergency (ER) | payer MEDICARE ==
[2018-01-19 15:07] LABS: BEDSIDE GLUCOSE 92 MG/DL (83-110)
[2018-01-19 15:14] LABS: BASO % 0.3 % (0.0-1.0); EOS # 0.1 10^3/uL (0.0-0.50); EOS % 1.1 % (0.0-3.0); HEMATOCRIT 37.6 % (36.0-47.0); HEMOGLOBIN 12.1 g/dl (12.0-15.5); IMMATURE GRANULOCYTE % 0.4 % (0-3.0); LYMPH # 1.6 10^3/uL (1.5-4.5); LYMPH % 14.8 % (24.0-44.0); MEAN CORPUSCULAR HEMOGLOBIN 32.4 pg (27.0-33.0); MEAN CORPUSCULAR HGB CONC 32.2 g/dl (32.0-36.5); MEAN CORPUSCULAR VOLUME 100.5 fl (80.0-96.0); MONO # 0.9 10^3/uL (0.0-0.8); MONO % 8.4 % (0.0-5.0); NEUTROPHILS # 7.8 10^3/uL (1.8-7.7); PLATELET COUNT, AUTOMATED 230 10^3/uL (150-450); RED BLOOD COUNT 3.74 10^6/uL (4.00-5.40); RED CELL DISTRIBUTION WIDTH 13.4 % (11.5-14.5); WHITE BLOOD COUNT 10.4 10^3/uL (4.0-10.0)
[2018-01-19 15:23] LABS: ANION GAP 8 MEQ/L (8-16); BLOOD UREA NITROGEN 14 MG/DL (7-18); CALCIUM LEVEL 8.8 MG/DL (8.8-10.2); CARBON DIOXIDE LEVEL 26 MEQ/L (21-32); CHLORIDE LEVEL 107 MEQ/L (98-107); CK-MB VALUE MASS < 1.0 NG/ML (<3.6); CPK CREATINE PHOSPHOKINASE 70 U/L (26-192); CREATININE FOR GFR 1.26 MG/DL (0.55-1.30); FREE T4 0.99 NG/DL (0.76-1.46); GLOMERULAR FILTRATION RATE 43.2 (>32); GLUCOSE, FASTING 107 MG/DL (70-100); MB/CK RELATIVE INDEX 1.43 (< OR =4); POTASSIUM SERUM 4.4 MEQ/L (3.5-5.1); SODIUM LEVEL 141 MEQ/L (136-145); TROPONIN I < 0.02 NG/ML (< 0.10)
== END 2018-01-19 17:10 | disposition home or self-care (01) ==
LOC: M ED 13:48
DX: R41.82 Altered mental status, unspecified (principal); I10 Essential (primary) hypertension; C50.919 Malignant neoplasm of unspecified site of unspecified female breast; Z86.711 Personal history of pulmonary embolism; Z87.891 Personal history of nicotine dependence; Z79.01 Long term (current) use of anticoagulants; Z79.899 Other long term (current) drug therapy
CPT/HCPCS: 71045

== ENCOUNTER 2018-02-18 13:14 | Emergency (ER) | payer MEDICARE ==
[~2018-02-18] VITALS: Ht 157.5 cm; Wt 66.4 kg
[~2018-02-18 13:14] MED LIST changes: +CIPR-249 PO; +CIPR500T19 PO; +COUM1TAB17 PO; +COUM2.5T17 PO; +IRON325T7 PO; +KEFL500C17 PO; -KEFL500C7 PO; +LETR2.5T2 PO; -LEVA750T PO; +LEVA750T7 PO; +LEVO500T3 PO; -LEVO500T32 PO; +LIAL1.2T PO; +NORC1TAB4 PO; -NORC5TAB PO; +POTA1TAB23 PO; -TAMO20TA4 PO; +TAMO20TA8 PO; +WARF-23 PO; -ZOFR20TA PO; +ZOFR4TAB16 PO; +ZONI50CA3 PO
[2018-02-18] MEDS ORDERED: ONDANSETRON 4MG/2ML VIAL (J2405) IV ONE (14:30)
[2018-02-18] MEDS ORDERED: ACETAMINOPHEN 325 MG TAB PO ONE (14:30)
[2018-02-18] MEDS ORDERED: NS 500 ML IV ONE (14:30)
[2018-02-18 15:05] LABS: BASO % 0.3 % (0.0-1.0); EOS # 0.1 10^3/uL (0.0-0.50); EOS % 0.8 % (0.0-3.0); HEMATOCRIT 37.7 % (36.0-47.0); HEMOGLOBIN 12.3 g/dl (12.0-15.5); LYMPH # 2.1 10^3/uL (1.5-4.5); MEAN CORPUSCULAR HEMOGLOBIN 32.6 pg (27.0-33.0); MEAN CORPUSCULAR HGB CONC 32.6 g/dl (32.0-36.5); MONO # 1.1 10^3/uL (0.0-0.8); MONO % 11.7 % (0.0-5.0); NEUTROPHILS # 5.9 10^3/uL (1.8-7.7); NEUTROPHILS % 63.8 % (36.0-66.0); PLATELET COUNT, AUTOMATED 226 10^3/uL (150-450); RED BLOOD COUNT 3.77 10^6/uL (4.00-5.40); WHITE BLOOD COUNT 9.2 10^3/uL (4.0-10.0)
--- NOTE | 2018-02-18 15:20 | REP ---
CT Head without contrast HISTORY: Headache COMPARISON: 01/19/2018 Areas of decreased attenuation are present in the periventricular white matter. This represents small-vessel ischemic disease. There is no intraparenchymal hemorrhage, acute infarct, mass or midline shift. The ventricular system and cortical sulci are dilated consistent with mild volume loss. There is no extra cerebral collection. There is no fracture. The visualized sinuses are clear. IMPRESSION: There is no intracranial lesion. Electronically Signed by Austin Nation MD 02/18/2018 03:12 P
[2018-02-18 15:43] LABS: ALBUMIN 3.4 GM/DL (3.2-5.2); ALT/SGPT 44 U/L (12-78); AMYLASE 53 U/L (25-115); BILIRUBIN,DIRECT < 0.1 MG/DL (0.0-0.2); BILIRUBIN,TOTAL 0.2 MG/DL (0.2-1.0); BLOOD UREA NITROGEN 14 MG/DL (7-18); CALCIUM LEVEL 7.7 MG/DL (8.8-10.2); CARBON DIOXIDE LEVEL 23 MEQ/L (21-32); CHLORIDE LEVEL 107 MEQ/L (98-107); CK-MB VALUE MASS < 1.0 NG/ML (<3.6); CPK CREATINE PHOSPHOKINASE 79 U/L (26-192); GLOMERULAR FILTRATION RATE 56.4 (>32); GLUCOSE, FASTING 88 MG/DL (70-100); LIPASE 115 U/L (73-393); MB/CK RELATIVE INDEX 1.27 (< OR =4); POTASSIUM SERUM 3.8 MEQ/L (3.5-5.1); SODIUM LEVEL 136 MEQ/L (136-145); TOTAL PROTEIN 7.3 GM/DL (6.4-8.2); TROPONIN I < 0.02 NG/ML (< 0.10)
[2018-02-18 17:21] LABS: INR 1.93; PROTHROMBIN TIME 22.4 SECONDS (12.1-14.4)
[2018-02-18 17:22] LABS: PARTIAL THROMBOPLASTIN TIME 40.8 SECONDS (25.4-37.6)
[2018-02-18] MEDS ORDERED: BACI1CAP PO (17:36)
[2018-02-18] MEDS ORDERED: BACT800T5 PO (17:36)
[2018-02-18] MEDS ORDERED: BACTRIM 160MG/800MG DS TAB PO ONE (17:45)
[2018-02-18 17:54] VITALS: BP 126/76
--- NOTE | 2018-02-19 18:18 | ECGEPIP ---
Stationary ECG Study [facility] - ED Test Date: 2018-02-18 Pat Name: OREN MOLINA Department: Room: - Gender: F Cutter Hand: : 1935 Requested By: Agata Warren Order Number: [id number] Reading MD: Neftaly Lind Measurements Intervals [place] Rate: 63 P: 56 [place]: 190 QRS: -20 QRSD: 81 T: 64 QT: 394 QTc: 405 Interpretive Statements SINUS RHYTHM Electronically Signed On 02-19-2018 18:18:09 EST by Neftaly Lind
== END 2018-02-18 17:55 | disposition home or self-care (01) ==
LOC: M ED 13:14
DX: N39.0 Urinary tract infection, site not specified (principal); R19.7 Diarrhea, unspecified; R51 Headache; F17.200 Nicotine dependence, unspecified, uncomplicated
CPT/HCPCS: 70450; 80048; 80076; 81001; 82150; 82550; 82553; 83605; 83690; 84484; 85025; 85610; 85730; 87040; 87088; 87186; 87507; 93005; 93041; 96361; 96374; 99284; J2405

== ENCOUNTER → 2018-11-06 | Outpatient (CLI) | payer MEDICARE ==
[~2018-11-06] MED LIST changes: +BACI1CAP PO; +BACT800T5 PO; +FERR325T82 PO; +IBUP600T42 PO; -IBUP60TA PO; -IRON325T7 PO; -NORC1TAB4 PO; +NORC1TAB7 PO
--- NOTE | 2018-11-06 16:10 | REP ---
LEFT WRIST, FOUR VIEWS: Four views of the left wrist are performed. There is no acute fracture or dislocation. There is an old unfused fracture of the ulnar styloid process. There is mild radiocarpal joint space narrowing with subchondral sclerosis. There is moderate narrowing with subchondral sclerosis and spurring at the joint between the trapezium and base of first metacarpal. There is a spur of the inferior pisiform bone. There may be an old chip fracture of the triquetrum, seen posteriorly on the lateral view. IMPRESSION: No acute fracture or dislocation. Old unfused fracture ulnar styloid. Degenerative changes. There may be an old chip fracture of the triquetrum, seen posteriorly on the lateral view. Electronically Signed by Gianfranco Osborne MD 11/07/2018 08:59 A
== END ==
LOC: M WUC 15:23
PROVIDERS: ATTEND Internal Medicine
DX: M25.532 Pain in left wrist (principal); S52.612 Displaced fracture of left ulna styloid process; X58.XXXD Exposure to other specified factors, subsequent encounter; Y92.9 Unspecified place or not applicable; M77.8 Other enthesopathies, not elsewhere classified

== ENCOUNTER → 2020-01-27 | Outpatient (CLI) | payer MEDICARE ==
[~2020-01-27] MED LIST changes: +WARF-18 PO; +ZONI50CA11 PO; -ZONI50CA3 PO
--- NOTE | 2020-01-27 14:22 | DEXAMM ---
INDICATION: BREAST CA/ON ARIMATASE INHIBITORS. COMPARISON: None. TECHNIQUE: Bone density was measured using dual-energy x-ray absorptionmetry (DEXA). FINDINGS: AP SPINE L1-L4 BMD 1.052 g/cm2 Young Adult T-Score -1.1 Age Matched Z-Score 0.8. LT FEMUR, TOTAL BMD 0.838 g/cm2 Young Adult T-Score -1.3 Age Matched Z-Score 1.0. LT NECK BMD 0.772 g/cm2 Young Adult T-Score -1.9 Age Matched Z-Score 0.5. RT FEMUR, TOTAL BMD 0.842 g/cm2 Young Adult T-Score -1.3 Age Matched Z-Score 1.0. RT NECK BMD 0.738 g/cm2 Young Adult T-Score -2.2 Age Matched Z-Score 0.2. IMPRESSION: There is low bone density of the spine. There is low bone density of the left hip. There is low bone density of the right hip. FOLLOW-UP: Recommendation for the next bone density exam: 2 years. <Electronically signed by Shoaib Armendariz > 01/27/20 [id number]
== END ==
LOC: M WHC 12:47
PROVIDERS: ATTEND Internal Medicine Hematology & Oncology
DX: Z85.3 Personal history of malignant neoplasm of breast (principal); Z79.811 Long term (current) use of aromatase inhibitors; M85.89 Other specified disorders of bone density and structure, multiple sites

== ENCOUNTER 2020-12-10 18:16 | Emergency (ER) | payer MEDICARE ==
[~2020-12-10] VITALS: Ht 160 cm; Wt 68.9 kg
[~2020-12-10 18:16] MED LIST changes: -ACET500T15 PO; -ASPI81TA26 PO; -BACITAB PO; -CITRTAB19 PO; -D31000TA2 PO; -MACR100C43 PO
[2020-12-10 18:34] VITALS: BP 161/72
== END 2020-12-10 22:50 | disposition home or self-care (01) ==
LOC: M ED 18:16
DX: U07.1 COVID-19 (principal); J44.9 Chronic obstructive pulmonary disease, unspecified; Z86.711 Personal history of pulmonary embolism; Z85.3 Personal history of malignant neoplasm of breast; Z87.891 Personal history of nicotine dependence; Z79.01 Long term (current) use of anticoagulants; Z79.899 Other long term (current) drug therapy

== ENCOUNTER → 2020-12-10 | Outpatient (REF) | payer MEDICARE ==
[~2020-12-10] MED LIST changes: +ACET500T15 PO; +ALEN70TA82 PO; +ASPI81TA26 PO; +BACITAB PO; +CALC1TAB63 PO; +CITRTAB19 PO; +D31000TA2 PO; +MACR100C43 PO
== END ==
LOC: M WUC 19:36
PROVIDERS: ATTEND Physician Assistant
DX: R30.0 Dysuria (principal)

== ENCOUNTER 2020-12-13 08:54 | Outpatient (CLI) | payer MEDICARE ==
--- NOTE | 2020-12-11 05:58 | HPEPDOC ---
[facility] Medical History & Physical Date of Admission Dec 11, 2020 Date of Service: Dec 11, 2020 Attending Physician: GISSELLE COUCH MD History and Physical CHIEF COMPLAINT: [85 y/o female c/o fatigue, malaise, n/v x3 days] HISTORY OF PRESENT ILLNESS: [This is an 85 y/o female with a pmh of breast ca s/p right mastectomy, pe on warfarin, ulcerative colitis who presents to our ED after being referred there by local urgent care for monoclonal antibody therapy after testing positive for covid19. Patient tells me that her symptoms began approx 3 days ago and her primary symptoms are of fatigue and malaise. Patient tells me that she has also had some mild nausea and has had 2 episodes of emesis. Patient denies any sob, cough, chest pain, chest tightness, diarrhea, pedal edema, syncope, paresthesias] PAST MEDICAL HISTORY: 1. [See HPI PAST SURGICAL HISTORY: 1. [Cholecystectomy]. 2. [Hysterectomy]. 3. [Right mastectomy]. SOCIAL HISTORY: Tobacco use:[Former] ETOH: [Denies] Illicit drug use: [Denies] FAMILY HISTORY: Reviewed - none pertinent ALLERGIES: Please see below. REVIEW OF SYSTEMS: Complete ROS performed with pertinent positives and negatives being found in the HPI. HOME MEDICATIONS: Please see below. PHYSICAL EXAMINATION: VITAL SIGNS: Please see below. GENERAL APPEARANCE: [This is a 85 y/o female who does not appear to be in any acute distress]. HEENT: [No mass or lesion. EOMI. No scleral icterus. nares patent. Oral mucosa moist]. CARDIOVASCULAR: [Regular rate, rhythm]. LUNGS: [Good air flow b/l. No wheezing, rales]. ABDOMEN: [Soft, nontender]. MUSCULOSKELETAL: [No joint deformity]. EXTREMITIES: [No pedal edema]. NEUROLOGICAL: [Speech clear. A+Ox3. No deficits]. PSYCHIATRIC: [Mood and affect appropriate]. LABORATORY DATA: See below. IMAGING: [None performed] MICROBIOLOGY: Please see below. ASSESSMENT: [This is an 85 y/o female with a pmh of breast ca s/p right mastectomy, pe on warfarin, ulcerative colitis who presents to our ED after being referred there by local urgent care for monoclonal antibody therapy after testing positive for covid19.]. . PLAN: 1. [COVID19 - Patient not meeting criteria for hospital admission. No hypoxia, severe illness - Due to patients pmh of cancer and vte, as well as advanced age, she is appropriate for monoclonal antibody therapy - Risks and benefits of mab infusion discussed with patient who voiced understanding - Consent form to be filled out - Will have meds on standby should allergic reaction occur - Pending no complications of infusion patient may go home after observation period - Regular diet]. Home Medications Scheduled Alendronate Sodium (Alendronate Sodium) 70 Mg Tablet, 1 TAB PO Q7D in the morning, at least 30 minutes before the first food, beverage, or medication of the day Bacillus Coagulans (Bacid with Lactospore) 1 Cap Cap, 1 CAP PO BID Calcium Carbonate/Vitamin D3 (Calcium 600-Vit D3 400 Tablet) 1 Each Tablet, 2 TAB PO DAILY Letrozole (Letrozole) 2.5 Mg Tab, 2.5 MG PO DAILY Mesalamine (Lialda) 1.2 Gm Tab, 2 TAB PO DAILY PATIENT DOES NOT THINK SHE IS TAKING THIS ANY LONGER Potassium Chloride (Potassium Chloride) 10 Meq Tab, 10 MEQ PO BID Warfarin Sodium (Warfarin Sodium) 2.5 Mg Tablet, 1 TAB PO 2XW Warfarin Sodium (Warfarin Sodium) 5 Mg Tablet, 1 TAB PO 5XW Allergies Coded Allergies: No Known Allergies (Unverified , 01/19/18) A-FIB/CHADSVASC A-FIB History Current/History of A-Fib/PAF?: No ERUM JACQUES Dec 11, 2020 05:58
[~2020-12-13] VITALS: Ht 160 cm; Wt 58.0 kg
[~2020-12-13 08:54] MED LIST changes: +ACETAMINOPHEN TAB 650MG DOSE (2X325MG) PO PRN; +ALBUTEROL 90 MCG/ACT 8GM HFA INHALER INH PRN; +ALBUTEROL SULFATE 2.5 MG/0.5 ML INH NEB SOLN INH PRN; +CASIRIVIMAB/IMDEVIMAB 1,200 MG in NS 250 ML IV ONE; +EPINEPHrine INJ 1 MG/ML 1ML AMP IM PRN; +NS 1,000 ML IV SCH; +diphenhydrAMINE 50MG/ML VIAL (J1200) IV PRN; +methylPREDNISolone 125MG 2ML VIAL IV PRN
[2020-12-13] MEDS ORDERED: BAMLANIVIMAB 700 MG, ETESEVIMAB 1,400 MG in NS 250 ML IV ONE (10:00)
[2020-12-13 10:35] VITALS: BP 144/65
[2020-12-13 11:05] VITALS: BP 145/66
[2020-12-13 11:35] VITALS: BP 143/64
[2020-12-13 12:35] VITALS: BP 138/81
[2020-12-14] MEDS ORDERED: CITRTAB19 PO (14:19)
[2020-12-14] MEDS ORDERED: MACR100C43 PO (14:19)
[2020-12-14] MEDS ORDERED: ACET500T15 PO (14:19)
[2020-12-14] MEDS ORDERED: D31000TA2 PO (14:19)
[2020-12-14] MEDS ORDERED: ASPI81TA26 PO (14:19)
[2020-12-14] MEDS ORDERED: BACITAB PO (14:21)
== END 2020-12-13 12:35 | disposition home or self-care (01) ==
LOC: M OPCLI4PR 08:54
PROVIDERS: ATTEND Internal Medicine
DX: U07.1 COVID-19 (principal)

== ENCOUNTER 2020-12-14 11:22 | Inpatient (IN) | payer MEDICARE ==
[~2020-12-14] VITALS: Ht 160 cm; Wt 67.9 kg
[~2020-12-14 11:22] MED LIST changes: -ACETAMINOPHEN TAB 650MG DOSE (2X325MG) PO PRN; -ALBUTEROL 90 MCG/ACT 8GM HFA INHALER INH PRN; -ALBUTEROL SULFATE 2.5 MG/0.5 ML INH NEB SOLN INH PRN; -CASIRIVIMAB/IMDEVIMAB 1,200 MG in NS 250 ML IV ONE; -EPINEPHrine INJ 1 MG/ML 1ML AMP IM PRN; -NS 1,000 ML IV SCH; -diphenhydrAMINE 50MG/ML VIAL (J1200) IV PRN; -methylPREDNISolone 125MG 2ML VIAL IV PRN
[2020-12-14] MEDS ORDERED: ACETAMINOPHEN 500 MG TAB PO ONE (11:40)
--- NOTE | 2020-12-14 11:58 | REP ---
INDICATION: Coronavirus workup. COMPARISON: 01/19/2018. TECHNIQUE: Single portable AP view of the chest was performed. FINDINGS: There is mild infiltrate/atelectasis in the left lung base along the diaphragm. The heart does not appear to be significantly enlarged. There is calcification of the thoracic aorta. The mediastinal silhouette is unchanged. IMPRESSION: Mild infiltrate/atelectasis in the left lung base. <Electronically signed by Gianfranco Osborne > 12/14/20 [id number]
[2020-12-14 12:24] LABS: BASO % 0.1 % (0.0-1.0); EOS % 0.4 % (0.0-3.0); HEMATOCRIT 41.9 % (36.0-47.0); HEMOGLOBIN 13.1 g/dl (12.0-15.5); LYMPH # 1.2 10^3/uL (1.5-5.0); LYMPH % 15.3 % (24.0-44.0); MEAN CORPUSCULAR HEMOGLOBIN 31.3 pg (27.0-33.0); MEAN CORPUSCULAR HGB CONC 31.3 g/dl (32.0-36.5); MEAN CORPUSCULAR VOLUME 100.2 fl (80.0-96.0); MONO # 0.9 10^3/uL (0.0-0.8); MONO % 11.5 % (2.0-8.0); NEUTROPHILS # 5.4 10^3/uL (1.5-8.5); NEUTROPHILS % 72.2 % (36.0-66.0); PLATELET COUNT, AUTOMATED 192 10^3/uL (150-450); RED BLOOD COUNT 4.18 10^6/uL (4.00-5.40); WHITE BLOOD COUNT 7.5 10^3/uL (4.0-10.0)
[2020-12-14 12:50] LABS: ALBUMIN 3.1 GM/DL (3.2-5.2); ALT/SGPT 35 U/L (12-78); BILIRUBIN,TOTAL 0.2 MG/DL (0.2-1.0); BLOOD UREA NITROGEN 13 MG/DL (7-18); CALCIUM LEVEL 8.2 MG/DL (8.8-10.2); CARBON DIOXIDE LEVEL 29 MEQ/L (21-32); CHLORIDE LEVEL 105 MEQ/L (98-107); CK-MB VALUE MASS < 1.0 NG/ML (<3.6); CPK CREATINE PHOSPHOKINASE 47 U/L (26-192); CREATININE FOR GFR 0.85 MG/DL (0.55-1.30); FERRITIN 528 NG/ML (8-252); GLOMERULAR FILTRATION RATE > 60.0 (>32); GLUCOSE, FASTING 94 MG/DL (70-100); LDH LACTATE DEHYDROGENASE 186 U/L (84-246); MAGNESIUM LEVEL 1.9 MG/DL (1.8-2.4); MB/CK RELATIVE INDEX 2.13 (< OR =4); POTASSIUM SERUM 4.4 MEQ/L (3.5-5.1); SODIUM LEVEL 136 MEQ/L (136-145); TOTAL PROTEIN 6.8 GM/DL (6.4-8.2); TROPONIN I < 0.02 NG/ML (< 0.10)
--- OUTSIDE RECORDS SUMMARY | 2020-12-14 13:03 | CCD | Continuity of Care Document ---
Author Author Daina OLVERA [place] Organization Unknown Address [facility] [place] [address] Phone [phone] Care Team Providers Care Turbinated Bone Grinder Name Role Phone Garrison Florian MD AUTM [phone] Problems Description No Information Available Social History Type Date Description Comments Sex Unknown ETOH Use Denies alcohol use Tobacco Use Start: Unknown The patient has never vaped Tobacco Use Start: Unknown End: Unknown Patient is a former smoker stopped 5 years ago Smoking Status Reviewed: 12/10/20 Patient is a former smoker st opped 5 years ago Allergies and adverse reactions Description No Known Drug Allergies Medications Active Medications SIG Qnty Indications Ordering Provide r Date Macrobid 100mg Capsules 1 tab by mouth twice a day x 7 days 14caps Ahsan Abdi JR. 12/12/2020 Mesalamine ER 0.375gm Caps ER 24HR bid Unknown Potassium Chloride 2 0Meq/15ML (10%) Solution bid Unknown Vitamin C 500mg Capsules Unknown Immunizations Description No Information Available Vital Signs Date Vital Result Comment 12/10/2020 5:26pm BP Systolic 128 mmHg BP Diastolic 84 mmHg Heart Rate 76 /min Respiratory Rate 20 /min O2 % BldC Oximetry 92 % Body Temperature 98.0 F Weight 150.00 lb Height 63 inches 5'3" BMI (Body Mass Index) 26.6 kg/m2 Pain Level 0 Results Test Acquired Date Facility Test Result H/L Range Note Laboratory test finding 12/10/2020 [facility] [address] [place] [address] [phone] Urine Culture FULL REPORT IN L <SEE NOTE> Normal 1 1 FULL REPORT IN LAB NOTES (eC W and [facility]). ORGANISM 1: KLEBSIELLA PNEUMONIAE COLONY COUNT >100,000 ORGANISM 1: KLEBSIELLA PNEUMONIAE KLEBSIELLA PNEUMONIAE: REACTION TRIMETHOPRIM/SULFAMETHOXAZOLE IV 160mg TMP & 800mg SMXq6h <=20 S TRIMETHOPRIM/SULFAMETHOXAZOLE PO Bactrim DS Bid <=20 S AMPICILLIN IV 500mg q6h >=32 R AMPICILLIN PO 500mg q6h fasting >=32 R GENTAMICIN IV 80mg q8h <=1 S NITROFURANTOIN PO 100mg BID 64 I CEFAZOLIN IV 1gm q8h <=4 S LEVOFLOXACIN IV 500mg qd <=0.12 S LEVOFLOXACIN PO 250mg qd <=0.12 S LEVOFLOXACIN PO 500mg qd <=0.12 S TOBRAMYCIN IV 80mg q8h <=1 S CEFTRIAXONE IV 1gm q24h <=1 S CEFTAZIDIME IV 1gm q8h <=1 S AMPICILLIN/SULBACTAM IV 1.5g q6h 8 S PIPERACILLIN/TAZOBACTAM IV 2.25 gm q6h <=4 S AZTREONAM IV 1gm q8h <=1 S ERTAPENEM IV 1gm qd <=0.5 S MEROPENEM IV 1 gm q8h <=0.25 S MEROPENEM IV 500 mg q8h <=0.25 S TIGECYCLINE IV 50mg q12h 1 S CEFEPIME IV 1 gm q12h <=1 S CEFEPIME IV 2 gm q12h <=1 S EXTD BRD SPCTRM BETA LACTAMASE IV NEGATIVE FOR ESBL Procedures Date Code Description Status 12/10/2020 11087 Office/Outpatient New Low [facility] 30 -44 Minutes Completed Medical Devices Description No Information Available Encounters Type Date Location Provider Dx Diagnosis Office Visit 12/10/2020 5:10p Main Office JACINTA Chadwick U0 7.1 Covid-19 R30.0 Dysuria E86.0 Dehydration Assessments Date Code Description Provider 12/10/2020 U07.1 Covid-19 JACINTA Bain 12/10/2020 R30.0 Dysuria JACINTA Bain 12/10/2020 E86.0 Dehydration JACINTA Bain Plan of Treatment No Information Available Functional Status Description No Information Available Mental Status Description No Information Available Referrals Description No Information Available
--- OUTSIDE RECORDS SUMMARY | 2020-12-14 13:03 | CCD | Continuity of Care Document ---
Author Author Daina OLVERA [place] Organization Unknown Address [place] [address] Phone [phone] Care Team Providers Care Rock Wool Insulator Name Role Phone Garrison Florian MD AUT [phone] Problems Description No Information Available Social History [...] SIG Qnty Indications Ordering Provide r Date Mesalamine ER 0.375gm Caps ER 24HR bid [...] H/L Range Note Laboratory test finding 12/10/2020 [facility] [address] [place] [address] [phone] Urine Culture <pending> Procedures Date Code Description Status 12/10/2020 81569 Office/Outpatient New Low MDM 30 -44 Minutes Completed Medical Devices Description [...]
--- OUTSIDE RECORDS SUMMARY | 2020-12-14 13:04 | CCD | Continuity of Care Document ---
Author Author Daina OLVERA [place] Organization Unknown Address [facility] [place] [address] Phone [phone] Care Team Providers Care Database Dba Name Role Phone Garrison Florian MD AUT [phone] Problems Description No Information Available Social History [...] H/L Range Note Laboratory test finding 12/10/2020 [facility] [address] [place] [address] [phone] Urine Culture <pending> Procedures Date Code Description Status 12/10/2020 96465 Office/Outpatient New Low MDM 30 -44 Minutes [...]
--- OUTSIDE RECORDS SUMMARY | 2020-12-14 13:04 | CCD | Continuity of Care Document ---
Author Author Daina OLVERA [place] Organization Unknown Address [facility] [place] [address] Phone [phone] Care Team Providers Care Ophthalmic Tech Name Role Phone Garrison Florian MD AUT [phone] Problems Description No Information Available Social History [...] H/L Range Note Laboratory test finding 12/10/2020 [facility] [address] [place] [address] [phone] Urine Culture <pending> Procedures Date Code Description Status 12/10/2020 04983 Office/Outpatient New Low MDM 30 -44 Minutes [...]
--- OUTSIDE RECORDS SUMMARY | 2020-12-14 13:04 | CCD | Continuity of Care Document ---
Author Author [facility] Unknown Address [facility] [place] [address] Phone [phone] Care Team Providers Care Metal Forger'S Assistant Name Role Phone Garrison Florian MD [facility] [phone] Problems Description No Information Available Social History [...] H/L Range Note Laboratory test finding 12/10/2020 [facility] [address] [place] [address] [phone] Urine Culture <pending> Procedures Date Code Description Status 12/10/2020 43376 Office/Outpatient New Low MDM 30 -44 Minutes [...]
--- OUTSIDE RECORDS SUMMARY | 2020-12-14 13:04 | CCD | Continuity of Care Document ---
Author Author Daina OLVERA [place] Organization Unknown Address [facility] [place] [address] Phone [phone] Care Team Providers Care Electrical Tester Name Role Phone Garrison Florian MD AUT [phone] Problems Description No Information Available Social History [...] H/L Range Note Laboratory test finding 12/10/2020 [facility] [address] [place] [address] [phone] Urine Culture <pending> Procedures Date Code Description Status 12/10/2020 77753 Office/Outpatient New Low MDM 30 -44 Minutes [...]
[2020-12-14] MEDS ORDERED: ACET500T15 PO (14:19)
[2020-12-14] MEDS ORDERED: ASPI81TA26 PO (14:19)
[2020-12-14] MEDS ORDERED: CITRTAB19 PO (14:19)
[2020-12-14] MEDS ORDERED: D31000TA2 PO (14:19)
[2020-12-14] MEDS ORDERED: MACR100C43 PO (14:19)
[2020-12-14] MEDS ORDERED: BACITAB PO (14:21)
[2020-12-14] MEDS ORDERED: HOME MED LIST COMPLETE! XX SCH (14:25)
[2020-12-14] MEDS ORDERED: ALBUTEROL 90 MCG/ACT 8GM HFA INHALER INH PRN (15:00)
--- NOTE | 2020-12-14 15:33 | HPEPDOC ---
[facility] Medical History & Physical Date of Admission Dec 14, 2020 Date of Service: Dec 14, 2020 Attending Physician: JOSH MCKNIGHT MD History and Physical CHIEF COMPLAINT: generalized weakness, diarrhea with incontinence HISTORY OF PRESENT ILLNESS: 85 yo W with a history of breast CA s/p R mastectomy and hormonal therapy that was c/b PE on tamoxifen, and was previously on coumadin, now without anticoagulation, ulcerative colitis, follows with Dr. Kauffman on mesalamine, prior smoker, unvaccinated for covid-19, who developed generalized myalgias on 12/07 and on 12.10 was diagnosed with covid-19 and received MABs on 12/13 who now returns to the ED with incontinent diarrhea without freda abdominal pain, and persistent generalized weakness and achiness while denying history of SOB, palpi tations, chest pain, freda fevers, chills. She has poor PO, nausea, some emesis. She otherwise has not had any bleeding without hematemesis, hemoptysis, melena or hematochezia. In the ED, she was hemodynamically stable, afebrile but notably hypoxemic to 88% on room air and desaturating to 81% with exertion. CXR showed a LLL infiltrate, while the rest of the workup revealed a procalcitonin of 2.02, WBC of 7.5, Hgb 13.1, platelets 192, na 136, K 4.4, Cr 0.85, ferritin 528, LFTs wnl. She was placed on supplemental O2 and is currently saturating 94% on 5L. During my examination she had significant ectopy with frequent PACs noted on telemetry and sometimes sinus arrhythmia, so I will admitted her to medicine for covid-19 PNA with suspicion of superimposed bacterial PNA. Of note, she was started on macrobid for a UTI yesterday, i am stopping it now as I start her on CAP antibiotics. I had an extensive discussion with Mr. Cardenas and her son Edmundo on speaker phone about her GOC and they both confirmed that she wishes to receive full interventions including intubation and CPR if indicated. ROS: 10 point ROS was completed and otherwise negative except for the elements discussed in the HPI. PAST MEDICAL HISTORY: 1. Ulcerative colitis. 2. History of C difficile colitis 3. Right breast cancers/p mastectomy and treatment 4. Pulmonary embolus presumed 2/2 tamoxifen s/p Coumadin, now discontinued PAST SURGICAL HISTORY: 1. Hysterectomy. 2. Cholecystectomy. 3. Right mastectomy for breast cancer. ALLERGIES: No known drug allergies. FAMILY HISTORY: Her mother had an aneurysm. PHYSICAL EXAMINATION: General: NAD, ill appearing HEENT: NCAT, wears corrective lenses, MMM Pulm: L basilar crackles posteriorly, otherwise clear throughout without wheezing. On 5L NC saturating 94% Cardiac: RRR, with frequent ectopic beats, no noted murmurs Abd: soft, normoactive bowel sounds, NTND Ext: WWP, no LE edema Neuro: CN3-12 intact, full strength 5/5 throughout, clear speech Psych: AOx3 Labs and Imaging: summarized above. Please see below for full details Assessment: 85 yo W with a history of breast CA s/p R mastectomy and hormonal therapy that was c/b PE on tamoxifen, and was previously on coumadin, now without anticoagulation, ulcerative colitis, follows with Dr. Kauffman on mesalamine, prior smoker, unvaccinated for covid-19, who developed generalized myalgias on 12/07 and on 12.10 was diagnosed with covid-19 and received MABs on 12/13 who now returns to the ED with incontinent diarrhea and found to be hypoxic to 88% at rest and 81% on exertion and now being admitted to medicine for covid-19 PNA with suspicion of superimposed bacterial PNA. Of note, she was started on macrobid for a UTI yesterday, i am stopping it now as I start her on CAP antibiotics. Covid-19 PNA: -s/p MABs on 12/13 -supplemental O2 to goal >90% -dexamethasone 6mg IV daily, day 1 -remdesevir, day 1 -baracitinib, day 1 -encourage awake proning -incentive spirometry -albuterol mdi q4h PRN for SOB and wheezing -q4h O2 saturations with vitals -covid labs per protocol -lovenox 40 QD, pending DDimer, has a history of prior presumed provoked PE, may have to get CTA chest to r/o PE as well -ASA 81 daily -tylenol PRN Presumed CAP: LLE infiltrate, elevated procalcitonin, hypoxemia -Levaquin 750 IV daily -SCx, mycoplasma, urine antigens for strep and legionella -MRSA PCR Acute hypoxemic respiratory failure: -supplemental O2, to goal >90% -treating covid-19 and CAP as above Hx of breast CA: -s/p R mastectomy and hormonal therapy, not on any treatment -f/u with onc per outpatient plan Ulcerative colitis: -with ongoing diarrhea, likely 2/2 covid-19, however with a history of c.diff, will check GI panel -monitor I/Os -continue home mesalamine, on ROS, not c/w a flare -continue bacid recent dx of a UTI: -stop macrobid, now on levaquin -will send UA/UCx DVT ppx: lovenox Vital Signs Vital Signs Date Time Temp Pulse Resp B/P (MAP) Pulse Ox O2 Delivery O2 Flow Rate FiO2 12/14/20 13:37 63 20 164/70 (101) 97 Nasal Cannula 4.0 12/14/20 12:19 98.2 Laboratory Data Labs 24H Laboratory Tests 2 12/14/20 12:02: Immature Granulocyte % (Auto) 0.5, Neutrophils (%) (Auto) 72.2H, Lymphocytes (%) (Auto) 15.3L, Monocytes (%) (Auto) 11.5H, Eosinophils (%) (Auto) 0.4, Basophils (%) (Auto) 0.1, Neutrophils # (Auto) 5.4, Lymphocytes # (Auto) 1.2L, Monocytes # (Auto) 0.9H, Eosinophils # (Auto) 0.0, Basophils # (Auto) 0.0, Nucleated Red Blood Cells % (auto) 0.0, Anion Gap 2L, Glomerular Filtration Rate > 60.0, Calcium Level 8.2L, Magnesium Level 1.9, Ferritin 528H, Total Bilirubin 0.2, Aspartate Amino Transf (AST/SGOT) 33, Alanine Aminotransferase (ALT/SGPT) 35, Alkaline Phosphatase 80, Lactate Dehydrogenase 186, Total Creatine Kinase 47, Creatine Kinase MB < 1.0, Creatine Kinase MB Relative Index 2.13, Troponin I < 0.02, C-Reactive Protein, Quantitative 1.10H, Total Protein 6.8, Albumin 3.1L, Albumin/Globulin Ratio 0.8L 12/14/20 12:03: Procalcitonin 2.02 CBC/BMP Laboratory Tests 12/14/20 12:02 Microbiology Microbiology 12/14/20 Blood Culture, Received Pending Home Medications Scheduled Aspirin (Aspirin EC) 81 Mg Tablet.dr, 81 MG PO DAILY Calcium Carb, Citrate/Vit D3 (Citracal + D ER Tablet) 1 Each Tablet.er, 1 TAB PO DAILY Cholecalciferol (Vitamin D3) (Vitamin D3) 1,000 Unit Tablet, 1,000 UNITS PO QHS L.acidoph/L.bulg/B.bif/S.therm (Bacid Caplet) 1 Each Tablet, 1 TAB PO BID Mesalamine (Lialda) 1.2 Gm Tab, 2.4 GM PO DAILY Nitrofurantoin Monohyd/M-Cryst (Macrobid 100 mg Capsule) 100 Mg Capsule, 100 MG PO BID FOR 7 DAYS, STARTED 12/13 Potassium Chloride (Potassium Chloride) 10 Meq Tab, 10 MEQ PO BID Scheduled PRN Acetaminophen (Acetaminophen) 500 Mg Tablet, 1,000 MG PO Q6H PRN for PAIN LEVEL 1-5 Allergies Coded Allergies: No Known Allergies (Unverified , 01/19/18) A-FIB/CHADSVASC A-FIB History Current/History of A-Fib/PAF?: No Current PO Anticoag Therapy: No Age/Risk Factor Scoring CHADSVASC: CHADSVASC Response (Comments) Value Age Risk Factor Age >/= 75 years old 2 Gender Risk Factor Female 1 Hx of CHF No 0 Hx of HTN No 0 Hx of Stroke/TIA/or VTE No 0 Hx of Diabetes No 0 Hx of Vascular Disease No 0 Total 3 Treatment Treatment ordered: NONE Reason Anticoagulant not given: Not indicated/[id number] JOSH MCKNIGHT MD Dec 14, 2020 15:33
[2020-12-14 15:43] LABS: INR 0.93; PROTHROMBIN TIME 12.9 SECONDS (12.7-14.5)
[2020-12-14 15:44] LABS: PARTIAL THROMBOPLASTIN TIME 32.8 SECONDS (25.9-37.0)
[2020-12-14 15:46] LABS: D-DIMER QUANT 1058.43 ng/ml (<500)
[2020-12-14 16:36] LABS: C REACTIVE PROTEIN QUANTITATIV 0.99 MG/DL (0.00-0.30)
[2020-12-14] MEDS: LevoFLOXacin IV 750 MG in IV 1 EA IV SCH (17:41)
[2020-12-14] MEDS: ASPIRIN 81MG ENTERIC TABLET PO SCH (17:41)
[2020-12-14] MEDS: dexameTHASONE 4 MG/ML 1ML VIAL (J1100 PER 1MG) IV SCH (17:42)
[2020-12-14 18:00] VITALS: O2SAT 92
[2020-12-14] MEDS ORDERED: REMDESIVIR 200 MG in NS 250 ML IV ONE (18:00)
[2020-12-14 18:05] VITALS: BP 126/63
--- NOTE | 2020-12-14 18:36 | ECGEPIP ---
[facility] - ED Test Date: 2020-12-14 Pat Name: OREN MOLINA Department: Room: [place] [address] Gender: Female Hide Puller: RAYO : 1935 Requested By: Shira Huerta Order Number: [id number] Reading MD: Neftaly Lind Measurements Intervals [place] Rate: 67 P: 44 FL: 184 QRS: -26 QRSD: 72 T: 49 QT: 408 QTc: 431 Interpretive Statements Sinus rhythm with premature atrial complexes SIMILAR TO 02/18/18 Electronically Signed on 12-14-2020 18:35:52 EDT by Neftaly Lind
[2020-12-14 20:00] VITALS: O2SAT 95
[2020-12-14] MEDS ORDERED: SODIUM CHLORIDE 0.9% INJ 10 ML SYR IV ONE (20:00)
[2020-12-14] MEDS: LACTOBACILLUS ACIDOPHILUS CAP (BACID) PO SCH (20:18)
[2020-12-14] MEDS: VITAMIN D 1,000 INTERNATIONAL UNITS TABLET PO SCH (20:18)
[2020-12-14] MEDS: POTASSIUM CHLORIDE 10MEQ SR TABLET PO SCH (20:19)
[2020-12-14] MEDS: ENOXAPARIN 40MG/0.4ML SYRINGE (J1650 PER 10MG) SC SCH (20:20)
[2020-12-14 21:00] VITALS: BP 117/83
[2020-12-14 21:04] LABS: APPEARANCE, URINE HAZY (CLEAR); BACTERIA, URINE AUTO NEGATIVE (NEGATIVE); BILIRUBIN, URINE AUTO NEGATIVE (NEGATIVE); BLOOD, URINE BLOOD NEGATIVE (NEGATIVE); COLOR, URINE YELLOW (YELLOW); GLUCOSE, URINE (UA) AUTO NEGATIVE (NEGATIVE); KETONE, URINE AUTO TRACE mg/dL (NEGATIVE); LEUKOCYTE ESTERASE, URINE AUTO 1+ (NEGATIVE); MUCUS, URINE SMALL (NEGATIVE); NITRITE, URINE AUTO NEGATIVE (NEGATIVE); PROTEIN, URINE AUTO NEGATIVE (NEGATIVE); RBC, URINE AUTO 1 /HPF (0-3); SPECIFIC GRAVITY URINE AUTO 1.014 (1.002-1.035); SQUAMOUS EPITHELIAL CELL UR AU 3 /HPF (0-6); UROBILINOGEN, URINE AUTO 0.2 mg/dL (0.0-2.0); WBC, URINE AUTO 7 /HPF (0-3)
[2020-12-15] VITALS (7 sets, daily range): BP systolic 120–132; BP diastolic 58–69; O2SAT 93–98
[2020-12-15 06:36] LABS: BASO % 0.1 % (0.0-1.0); HEMATOCRIT 40.3 % (36.0-47.0); HEMOGLOBIN 12.8 g/dl (12.0-15.5); LYMPH # 1.4 10^3/uL (1.5-5.0); LYMPH % 19.2 % (24.0-44.0); MEAN CORPUSCULAR HEMOGLOBIN 31.5 pg (27.0-33.0); MEAN CORPUSCULAR HGB CONC 31.8 g/dl (32.0-36.5); MEAN CORPUSCULAR VOLUME 99.3 fl (80.0-96.0); MONO # 0.6 10^3/uL (0.0-0.8); MONO % 8.3 % (2.0-8.0); NEUTROPHILS # 5.1 10^3/uL (1.5-8.5); NEUTROPHILS % 72.1 % (36.0-66.0); PLATELET COUNT, AUTOMATED 183 10^3/uL (150-450); RED BLOOD COUNT 4.06 10^6/uL (4.00-5.40)
[2020-12-15 07:08] LABS: BLOOD UREA NITROGEN 13 MG/DL (7-18); CALCIUM LEVEL 8.2 MG/DL (8.8-10.2); CARBON DIOXIDE LEVEL 26 MEQ/L (21-32); CHLORIDE LEVEL 105 MEQ/L (98-107); CREATININE FOR GFR 0.81 MG/DL (0.55-1.30); GLOMERULAR FILTRATION RATE > 60.0 (>32); GLUCOSE, FASTING 108 MG/DL (70-100); MAGNESIUM LEVEL 1.9 MG/DL (1.8-2.4); POTASSIUM SERUM 4.7 MEQ/L (3.5-5.1); SODIUM LEVEL 134 MEQ/L (136-145)
[2020-12-15] MEDS: MESALAMINE 400 MG CAPSULE DELAYED RELEASE (DELZICOL) PO SCH ×3 (08:33→20:29)
[2020-12-15] MEDS: CALCIUM/VITAMIN D 500 MG TAB PO SCH (08:33)
[2020-12-15] MEDS: ASPIRIN 81MG ENTERIC TABLET PO SCH (08:33)
[2020-12-15] MEDS: LACTOBACILLUS ACIDOPHILUS CAP (BACID) PO SCH ×2 (08:33→20:29)
[2020-12-15] MEDS: dexameTHASONE 4 MG/ML 1ML VIAL (J1100 PER 1MG) IV SCH (08:34)
[2020-12-15] MEDS: POTASSIUM CHLORIDE 10MEQ SR TABLET PO SCH ×2 (08:34→20:29)
[2020-12-15] MEDS: ACETAMINOPHEN 500 MG TAB PO PRN ×2 (14:05→20:28)
--- NOTE | 2020-12-15 14:05 | IPNPDOC ---
Text Note Date of Service The patient was seen on 12/15/20. NOTE SUBJECTIVE: Afebrile overnight, now on 2L NC -No acute complaints at this time and denies chest pain, palpitations, persistent diarrhea or emesis OBJECTIVE: General: NAD, ill appearing HEENT: NCAT, MMM Pulm: L basilar crackles posteriorly, otherwise clear without wheezing. On 2L NC, speaking in full sentences Cardiac: RRR, this AM, no m/r/g Abd: soft, normoactive bowel sounds, NTND Ext: WWP, no LE edema Neuro: CN3-12 intact, full strength 5/5 throughout, clear speech Psych: AOx3 Labs: reviewed WBC 7 hgb 12.8 platelets 183 na 134 K 4.7 Cr 0.81 Assessment: 85 yo W with a history of breast CA s/p R mastectomy and hormonal therapy that was c/b PE on tamoxifen, and was previously on coumadin, ulcerative colitis, follows with Dr. Kauffman on mesalamine, prior smoker, unvaccinated for covid-19, who developed generalized myalgias on 12/07 and on 12/10 was diagnosed with c ovid-19 and received MABs on 12/13 who is now admitted for covid-19 PNA with suspicion of superimposed bacterial PNA with acute hypoxemic respiratory failure. Of note, she was started on macrobid for a UTI on 12/13, that I stopped as I started her on Levaquin for CAP. Covid-19 PNA: -s/p MABs on 12/13 -supplemental O2 to goal >90% -dexamethasone 6mg IV daily, day 2 -remdesevir, day 2 -baracitinib, day 2 -encourage awake proning -incentive spirometry -albuterol mdi q4h PRN for SOB and wheezing -q4h O2 saturations with vitals -covid labs per protocol -lovenox 40 QD -ASA 81 daily -tylenol PRN Presumed CAP: LLE infiltrate, elevated procalcitonin, hypoxemia -Levaquin 750 IV daily, day 2 -SCx, mycoplasma, urine antigens for strep and legionella -MRSA PCR negative Acute hypoxemic respiratory failure: -supplemental O2, to goal >90% -treating covid-19 and CAP as above Hx of breast CA: -s/p R mastectomy and hormonal therapy, not on any treatment -f/u with onc per outpatient plan Ulcerative colitis: -with ongoing diarrhea, 2/2 covid-19, GI panel was negative -monitor I/Os -continue home mesalamine, on ROS, not c/w a flare -continue bacid recent dx of a UTI: -stopped macrobid, now on levaquin -UA was negative for bacteria DVT ppx: lovenox VS,Fishbone, I+O VS, Fishbone, I+O Laboratory Tests 12/14/20 12:02 12/15/20 05:48 Vital Signs Date Time Temp Pulse Resp B/P (MAP) Pulse Ox O2 Delivery O2 Flow Rate FiO2 12/15/20 06:00 97.2 66 20 120/58 (78) 97 Nasal Cannula 5.0 I&O- Last 24 Hours up to 6 AM 12/15/20 05:59 Intake Total 440 ml Output Total 1200 ml Balance -760 ml JOSH MCKNIGHT MD Dec 15, 2020 08:03
[2020-12-15] MEDS: LevoFLOXacin IV 750 MG in IV 1 EA IV SCH (15:56)
[2020-12-15] MEDS: SODIUM CHLORIDE 0.9% INJ 10 ML SYR IV SCH (17:18)
[2020-12-15] MEDS: REMDESIVIR 100 MG in NS 250 ML IV SCH (17:18)
[2020-12-15] MEDS: ENOXAPARIN 40MG/0.4ML SYRINGE (J1650 PER 10MG) SC SCH (20:28)
[2020-12-15] MEDS: VITAMIN D 1,000 INTERNATIONAL UNITS TABLET PO SCH (20:29)
[2020-12-15] MEDS: RAMELTEON 8 MG TAB (ROZEREM) PO PRN (20:29)
[2020-12-16] MEDS: ACETAMINOPHEN 500 MG TAB PO PRN ×3 (03:52→20:03)
[2020-12-16] MEDS: ONDANSETRON 4MG/2ML VIAL IV PRN ×2 (03:52→09:43)
[2020-12-16 04:00] VITALS: BP 141/87
[2020-12-16 07:52] LABS: BASO % 0.1 % (0.0-1.0); HEMATOCRIT 38.2 % (36.0-47.0); HEMOGLOBIN 12.2 g/dl (12.0-15.5); LYMPH # 2.8 10^3/uL (1.5-5.0); LYMPH % 24.1 % (24.0-44.0); MEAN CORPUSCULAR HEMOGLOBIN 31.3 pg (27.0-33.0); MEAN CORPUSCULAR HGB CONC 31.9 g/dl (32.0-36.5); MEAN CORPUSCULAR VOLUME 97.9 fl (80.0-96.0); MONO # 1.3 10^3/uL (0.0-0.8); MONO % 11.5 % (2.0-8.0); NEUTROPHILS # 7.5 10^3/uL (1.5-8.5); PLATELET COUNT, AUTOMATED 205 10^3/uL (150-450); WHITE BLOOD COUNT 11.7 10^3/uL (4.0-10.0)
[2020-12-16 08:14] LABS: INR 1.05; PROTHROMBIN TIME 14.1 SECONDS (12.7-14.5)
[2020-12-16 08:18] LABS: ALBUMIN 2.6 GM/DL (3.2-5.2); ALT/SGPT 40 U/L (12-78); BILIRUBIN,DIRECT < 0.1 MG/DL (0.0-0.2); BILIRUBIN,TOTAL 0.2 MG/DL (0.2-1.0); BLOOD UREA NITROGEN 20 MG/DL (7-18); CALCIUM LEVEL 8.3 MG/DL (8.8-10.2); CARBON DIOXIDE LEVEL 27 MEQ/L (21-32); CHLORIDE LEVEL 103 MEQ/L (98-107); CPK CREATINE PHOSPHOKINASE 54 U/L (26-192); FERRITIN 519 NG/ML (8-252); GLOMERULAR FILTRATION RATE > 60.0 (>32); GLUCOSE, FASTING 98 MG/DL (70-100); LDH LACTATE DEHYDROGENASE 164 U/L (84-246); NT-PRO BNP 166 PG/ML (<450); POTASSIUM SERUM 4.5 MEQ/L (3.5-5.1); SODIUM LEVEL 136 MEQ/L (136-145); TOTAL PROTEIN 6.6 GM/DL (6.4-8.2); TROPONIN I < 0.02 NG/ML (< 0.10)
[2020-12-16] MEDS ORDERED: FLUBLOK(EGG FREE)(QUAD)INFLUENZA VACC 0.5ML SYRINGE 18YRS & OLDER IM ONE (09:00)
[2020-12-16] MEDS: POTASSIUM CHLORIDE 10MEQ SR TABLET PO SCH ×2 (09:33→20:01)
[2020-12-16] MEDS: LACTOBACILLUS ACIDOPHILUS CAP (BACID) PO SCH ×2 (09:33→20:01)
[2020-12-16] MEDS: CALCIUM/VITAMIN D 500 MG TAB PO SCH (09:33)
[2020-12-16] MEDS: MESALAMINE 400 MG CAPSULE DELAYED RELEASE (DELZICOL) PO SCH ×3 (09:34→20:02)
[2020-12-16] MEDS: ASPIRIN 81MG ENTERIC TABLET PO SCH (09:34)
[2020-12-16] MEDS: dexameTHASONE 20MG/5ML VIAL (J1100 PER 1MG) IV SCH ×2 (09:35→20:01)
--- NOTE | 2020-12-16 11:07 | IPNPDOC ---
Date Seen The patient was seen on 12/16/20. Progress Note SUBJECTIVE: Complains of some nausea and headache this morning she had 2 loose bowel movements no vomiting Afebrile no complaints of cough shortness of breath OBJECTIVE: General: No distress speaks in full sentences on supplemental oxygen via nasal cannula HEENT: NCAT, MMM no JVD or thyromegaly Pulm: Diminished breath sounds on the left with fine crepitations Cardiac: S1-S2 regular rate rhythm Abd: Positive bowel sounds x4 quadrants no rebound guarding soft nontender nondistended Ext: No cyanosis clubbing or pitting edema Neuro: CN3-12 intact, full strength 5/5 throughout, clear speech Psych: AOx3 Laboratory data microbiology imaging studies please see the chart Assessment: 85 yo W with a history of breast CA s/p R mastectomy and hormonal therapy that was c/b PE on tamoxifen, and was previously on coumadin, ulcerative colitis, follows with Dr. Kauffman on mesalamine, prior smoker, unvaccinated for covid-19, who developed generalized myalgias on 12/07 and on 12/10 was diagnosed with covid-19 and received MABs on 12/13 who is now admitted for covid-19 PNA with suspicion of superimposed bacterial PNA with acute hypoxemic respiratory failure. Of note, she was started on macrobid for a UTI on 12/13, that I stopped as I started her on Levaquin for CAP. Covid-19 PNA with acute hypoxic respiratory failure -On antivirals, Decadron which will increase to 10 twice daily, antibiotics supplemental oxygen to keep saturations 90% Hx of breast CA: -s/p R mastectomy and hormonal therapy Ulcerative colitis: Resumed home mesalamine, recent dx of a UTI: Asymptomatic DVT ppx: lovenox VS, I&O, 24H, Fishbone Vital Signs/I&O Vital Signs Date Time Temp Pulse Resp B/P (MAP) Pulse Ox O2 Delivery O2 Flow Rate FiO2 12/16/20 04:00 97.2 70 19 141/87 (105) 91 Nasal Cannula 2.0 I&O- Last 24 Hours up to 6 AM 12/16/20 06:00 Intake Total 2640 ml Output Total 1625 ml Balance 1015 ml Laboratory Data 24H LABS Laboratory Tests 2 12/15/20 11:37: Bedside Glucose (Misc Panel) 124H 12/16/20 06:51: Immature Granulocyte % (Auto) 0.3, Neutrophils (%) (Auto) 64.0, Lymphocytes (%) (Auto) 24.1, Monocytes (%) (Auto) 11.5H, Eosinophils (%) (Auto) 0.0, Basophils (%) (Auto) 0.1, Neutrophils # (Auto) 7.5, Lymphocytes # (Auto) 2.8, Monocytes # (Auto) 1.3H, Eosinophils # (Auto) 0.0, Basophils # (Auto) 0.0, Nucleated Red Blood Cells % (auto) 0.0, Prothrombin Time 14.1H, Prothromb Time International Ratio 1.05, Activated Partial Thromboplast Time 38.0, Fibrinogen 384, Anion Gap 6L, Glomerular Filtration Rate > 60.0, Calcium Level 8.3L, Magnesium Level 2.0, Ferritin 519H, Total Bilirubin 0.2, Direct Bilirubin < 0.1, Aspartate Amino Transf (AST/SGOT) 28, Alanine Aminotransferase (ALT/SGPT) 40, Alkaline Phosphatase 70, Lactate Dehydrogenase 164, Total Creatine Kinase 54, Troponin I < 0.02, BU-Tdn-G-Type Natriuretic Peptide 166, Total Protein 6.6, Albumin 2.6L, Albumin/Globulin Ratio 0.7L CBC/BMP Laboratory Tests 12/16/20 06:51 Microbiology Microbiology 12/14/20 Gastrointestinal Tract Panel (PCR) - Final, Complete 12/14/20 Blood Culture - Preliminary, Resulted No growth after 24 hours . All specim... 12/14/20 Blood Culture - Preliminary, Resulted No growth after 24 hours . All specim... ZACK JACOBS MD Dec 16, 2020 11:07
[2020-12-16 11:46] VITALS: O2SAT 94
[2020-12-16 14:00] VITALS: BP 127/57
[2020-12-16 16:10] LABS: MYCOPLASMA PNEUMONIAE IgG 140 U/mL (0-99); MYCOPLASMA PNEUMONIAE IgM <770 U/mL (0-769)
[2020-12-16] MEDS: LevoFLOXacin IV 750 MG in IV 1 EA IV SCH (16:40)
[2020-12-16] MEDS: REMDESIVIR 100 MG in NS 250 ML IV SCH (17:59)
[2020-12-16] MEDS: SODIUM CHLORIDE 0.9% INJ 10 ML SYR IV SCH (20:00)
[2020-12-16] MEDS: VITAMIN D 1,000 INTERNATIONAL UNITS TABLET PO SCH (20:01)
[2020-12-16] MEDS: ENOXAPARIN 40MG/0.4ML SYRINGE (J1650 PER 10MG) SC SCH (20:02)
[2020-12-16 20:15] VITALS: BP 139/61
[2020-12-16 20:30] VITALS: O2SAT 92
[2020-12-16] MEDS: RAMELTEON 8 MG TAB (ROZEREM) PO PRN (22:02)
[2020-12-17 03:14] VITALS: BP 130/63
[2020-12-17 04:11] VITALS: O2SAT 93
[2020-12-17 06:28] LABS: BASO % 0.1 % (0.0-1.0); HEMATOCRIT 40.1 % (36.0-47.0); LYMPH # 1.4 10^3/uL (1.5-5.0); LYMPH % 11.8 % (24.0-44.0); MEAN CORPUSCULAR HEMOGLOBIN 31.6 pg (27.0-33.0); MEAN CORPUSCULAR HGB CONC 32.4 g/dl (32.0-36.5); MEAN CORPUSCULAR VOLUME 97.3 fl (80.0-96.0); MONO # 0.4 10^3/uL (0.0-0.8); MONO % 3.7 % (2.0-8.0); NEUTROPHILS # 9.6 10^3/uL (1.5-8.5); NEUTROPHILS % 83.7 % (36.0-66.0); PLATELET COUNT, AUTOMATED 197 10^3/uL (150-450); RED BLOOD COUNT 4.12 10^6/uL (4.00-5.40); WHITE BLOOD COUNT 11.5 10^3/uL (4.0-10.0)
[2020-12-17 07:09] LABS: BLOOD UREA NITROGEN 22 MG/DL (7-18); CARBON DIOXIDE LEVEL 24 MEQ/L (21-32); CHLORIDE LEVEL 105 MEQ/L (98-107); CREATININE FOR GFR 0.79 MG/DL (0.55-1.30); GLOMERULAR FILTRATION RATE > 60.0 (>32); GLUCOSE, FASTING 138 MG/DL (70-100); POTASSIUM SERUM 4.5 MEQ/L (3.5-5.1); SODIUM LEVEL 137 MEQ/L (136-145)
[2020-12-17 08:00] VITALS: O2SAT 93
[2020-12-17] MEDS: CALCIUM/VITAMIN D 500 MG TAB PO SCH (08:16)
[2020-12-17] MEDS: POTASSIUM CHLORIDE 10MEQ SR TABLET PO SCH ×2 (08:17→20:56)
[2020-12-17] MEDS: MESALAMINE 400 MG CAPSULE DELAYED RELEASE (DELZICOL) PO SCH ×3 (08:17→20:56)
[2020-12-17] MEDS: dexameTHASONE 20MG/5ML VIAL (J1100 PER 1MG) IV SCH ×2 (08:17→20:56)
[2020-12-17] MEDS: ASPIRIN 81MG ENTERIC TABLET PO SCH (08:17)
[2020-12-17] MEDS: LACTOBACILLUS ACIDOPHILUS CAP (BACID) PO SCH ×2 (08:17→20:56)
--- NOTE | 2020-12-17 10:15 | IPNPDOC ---
Date Seen The patient was seen on 12/17/20. Progress Note SUBJECTIVE: Denies any recurrent diarrhea. No shortness of breath chest pain pressure tightness fever chills overnight. She is tolerating her diet but with decreased appetite. OBJECTIVE: General: Flat on the bed with no distress able to speak in full sentences no use of respiratory accessory muscles HEENT: NCAT, MMM no JVD or thyromegaly no cervical lymphadenopathy Pulm: Diminished breath sounds on the left with fine crepitations Cardiac: S1-S2 regular rate rhythm Abd: Positive bowel sounds x4 quadrants no rebound guarding soft nontender nondistended Ext: No cyanosis clubbing or pitting edema Neuro: CN3-12 intact, full strength 5/5 throughout, clear speech Psych: AOx3 Laboratory data microbiology imaging studies please see the chart Assessment: 85 yo W with a history of breast CA s/p R mastectomy and hormonal therapy that was c/b PE on tamoxifen, and was previously on coumadin, ulcerative colitis, follows with Dr. Kauffman on mesalamine, prior smoker, unvaccinated for covid-19, who developed generalized myalgias on 12/07 and on 12/10 was diagnosed with covid-19 and received MABs on 12/13 who is now admitted for covid-19 PNA with suspicion of superimposed bacterial PNA with acute hypoxemic respiratory failure. Of note, she was started on macrobid for a UTI on 12/13, that I stopped as I started her on Levaquin for CAP. Covid-19 PNA with acute hypoxic respiratory failure -On antivirals, Decadron which will increase to 10 twice daily, antibiotics sup plemental oxygen to keep saturations 90% -Diarrhea has resolved. Tolerating her diet well -Prone positioning, incentive spirometer, Acapella Hx of breast CA: -s/p R mastectomy and hormonal therapy Ulcerative colitis: Resumed home mesalamine, without bloody diarrhea or abdominal pain recent dx of a UTI: Asymptomatic DVT ppx: lovenox VS, I&O, 24H, Fishbone Vital Signs/I&O Vital Signs Date Time Temp Pulse Resp B/P (MAP) Pulse Ox O2 Delivery O2 Flow Rate FiO2 12/17/20 04:11 93 Nasal Cannula 2.0 12/17/20 03:14 97.0 60 20 130/63 (85) I&O- Last 24 Hours up to 6 AM 12/17/20 06:00 Intake Total 1320 ml Output Total 700 ml Balance 620 ml Laboratory Data 24H LABS Laboratory Tests 2 12/17/20 06:00: Immature Granulocyte % (Auto) 0.7, Neutrophils (%) (Auto) 83.7H, Lymphocytes (%) (Auto) 11.8L, Monocytes (%) (Auto) 3.7, Eosinophils (%) (Auto) 0.0, Basophils (%) (Auto) 0.1, Neutrophils # (Auto) 9.6H, Lymphocytes # (Auto) 1.4L, Monocytes # (Auto) 0.4, Eosinophils # (Auto) 0.0, Basophils # (Auto) 0.0, Nucleated Red Blood Cells % (auto) 0.0, Anion Gap 8, Glomerular Filtration Rate > 60.0, Calcium Level 8.0L, Magnesium Level 2.0 CBC/BMP Laboratory Tests 12/17/20 06:00 Microbiology Microbiology 12/14/20 Gastrointestinal Tract Panel (PCR) - Final, Complete 12/14/20 Blood Culture - Preliminary, Resulted No Growth after 48 hours. All Specime... 12/14/20 Blood Culture - Preliminary, Resulted No Growth after 48 hours. All Specime... ZACK JACOBS MD Dec 17, 2020 10:15
[2020-12-17 14:00] VITALS: BP 107/57
[2020-12-17] MEDS: LevoFLOXacin 750 MG TABLET PO SCH (16:22)
[2020-12-17] MEDS: REMDESIVIR 100 MG in NS 250 ML IV SCH (16:22)
[2020-12-17] MEDS: SODIUM CHLORIDE 0.9% INJ 10 ML SYR IV SCH (16:23)
[2020-12-17 20:00] VITALS: BP 124/60; O2SAT 95
[2020-12-17] MEDS: ENOXAPARIN 40MG/0.4ML SYRINGE (J1650 PER 10MG) SC SCH (20:56)
[2020-12-17] MEDS: RAMELTEON 8 MG TAB (ROZEREM) PO PRN (20:56)
[2020-12-17] MEDS: VITAMIN D 1,000 INTERNATIONAL UNITS TABLET PO SCH (20:56)
[2020-12-18] VITALS (7 sets, daily range): BP systolic 107–129; BP diastolic 55–60; O2SAT 91–97
[2020-12-18 06:50] LABS: BASO % 0.1 % (0.0-1.0); HEMOGLOBIN 12.3 g/dl (12.0-15.5); LYMPH # 1.5 10^3/uL (1.5-5.0); LYMPH % 8.9 % (24.0-44.0); MEAN CORPUSCULAR HEMOGLOBIN 31.5 pg (27.0-33.0); MEAN CORPUSCULAR HGB CONC 32.4 g/dl (32.0-36.5); MEAN CORPUSCULAR VOLUME 97.2 fl (80.0-96.0); MONO % 5.9 % (2.0-8.0); NEUTROPHILS # 13.8 10^3/uL (1.5-8.5); NEUTROPHILS % 84.2 % (36.0-66.0); PLATELET COUNT, AUTOMATED 225 10^3/uL (150-450); RED BLOOD COUNT 3.91 10^6/uL (4.00-5.40); WHITE BLOOD COUNT 16.4 10^3/uL (4.0-10.0)
[2020-12-18 07:06] LABS: INR 1.04
[2020-12-18 07:08] LABS: PARTIAL THROMBOPLASTIN TIME 34.7 SECONDS (25.9-37.0)
[2020-12-18 07:08] LABS: BODY FLUID CULTURE Not indicated. (.); LEGIONELLA ANTIGEN URINE Negative (Negative); ORGANISM ID Not indicated. (.); SPECIMEN SOURCE Urine (.); URINE STREP PNEUMONIAE ANTIGEN Negative (Negative)
[2020-12-18 07:19] LABS: ALBUMIN 2.6 GM/DL (3.2-5.2); ALT/SGPT 44 U/L (12-78); BILIRUBIN,DIRECT < 0.1 MG/DL (0.0-0.2); BILIRUBIN,TOTAL 0.2 MG/DL (0.2-1.0); BLOOD UREA NITROGEN 27 MG/DL (7-18); CALCIUM LEVEL 8.1 MG/DL (8.8-10.2); CARBON DIOXIDE LEVEL 26 MEQ/L (21-32); CHLORIDE LEVEL 105 MEQ/L (98-107); CPK CREATINE PHOSPHOKINASE 32 U/L (26-192); FERRITIN 452 NG/ML (8-252); GLOMERULAR FILTRATION RATE > 60.0 (>32); GLUCOSE, FASTING 155 MG/DL (70-100); LDH LACTATE DEHYDROGENASE 179 U/L (84-246); MAGNESIUM LEVEL 2.1 MG/DL (1.8-2.4); NT-PRO BNP 296 PG/ML (<450); POTASSIUM SERUM 4.7 MEQ/L (3.5-5.1); SODIUM LEVEL 139 MEQ/L (136-145); TOTAL PROTEIN 5.8 GM/DL (6.4-8.2); TROPONIN I < 0.02 NG/ML (< 0.10)
[2020-12-18] MEDS: CALCIUM/VITAMIN D 500 MG TAB PO SCH (09:55)
[2020-12-18] MEDS: MESALAMINE 400 MG CAPSULE DELAYED RELEASE (DELZICOL) PO SCH ×3 (09:55→20:31)
[2020-12-18] MEDS: ASPIRIN 81MG ENTERIC TABLET PO SCH (09:55)
[2020-12-18] MEDS: POTASSIUM CHLORIDE 10MEQ SR TABLET PO SCH ×2 (09:55→20:31)
[2020-12-18] MEDS: LACTOBACILLUS ACIDOPHILUS CAP (BACID) PO SCH ×2 (09:55→20:30)
[2020-12-18] MEDS: dexameTHASONE 20MG/5ML VIAL (J1100 PER 1MG) IV SCH ×2 (09:55→20:31)
--- NOTE | 2020-12-18 10:13 | IPN ---
PROGRESS NOTE DATE: 12/18/2020 SUBJECTIVE: Patient still complains of headache, occasionally especially when she starts to move around as well as persistent nausea despite having Zofran. Patient denies any vomiting. Diarrhea has resolved. No chest pain, pressure or tightness. She is still short of breath when she ambulates. Saturations, however, have remained over 90% on 3 liters of oxygen. PHYSICAL EXAMINATION: VITAL SIGNS: Temperature 97.3, pulse 55, respiratory rate 18, blood pressure 107/55, 97% on 3 liters nasal cannula. GENERAL: Awake, alert and oriented x3. No conversational dyspnea. Able to speak in full sentences. HEENT: No JVD, thyromegaly, cervical lymphadenopathy. LUNGS: Diminished. HEART: S1, S2, sinus rhythm. ABDOMEN: Soft, nontender, non-distended. Positive bowel sounds. EXTREMITIES: No cyanosis, clubbing or pitting edema. LABORATORY DATA/IMAGING STUDIES/MICROBIOLOGY: Please see the chart. ASSESSMENT AND PLAN: This is an 85-year-old female with history of breast cancer; status post right mastectomy, hormonal therapy on Tamoxifen; previously on Coumadin, history of ulcerative colitis on chronic Mesalamine, prior history of smoking, unvaccinated for Coronavirus, who presented with myalgias on 12/07/2020, diagnosed with COVID on 12/10/2020, received MAbs on 12/13/2020, now admitted for COVID-19 pneumonia as well as secondary bacterial pneumonia with acute hypoxic respiratory failure. She was recently treated with Macrobid due to a UTI on 12/13/2020, currently now on Levaquin. IMPRESSION: 1. Acute hypoxic respiratory failure secondary to COVID-19 pneumonia. 2. COVID-19 pneumonia. 3. Recent urinary tract infection. 4. History of breast cancer; status post right mastectomy, hormonal therapy. 5. Ulcerative colitis; not an exacerbation. 6. COVID-19 induced pneumonia. 7. Headache and nausea secondary to COVID-19. PLAN: Continue with present management; Levaquin for bacterial pneumonia that has been superimposed on Coronavirus-19 pneumonia. For Coronavirus, continue with Decadron, Remdesivir, aspirin and Lovenox. Continue all other home medications. For headache, Fioricet as needed. MTDD
[2020-12-18] MEDS: LevoFLOXacin 750 MG TABLET PO SCH (16:07)
[2020-12-18] MEDS: REMDESIVIR 100 MG in NS 250 ML IV SCH (18:19)
[2020-12-18] MEDS: SENNA 8.6 MG TAB (SENOKOT) PO PRN (20:30)
[2020-12-18] MEDS: SODIUM CHLORIDE 0.9% INJ 10 ML SYR IV SCH (20:30)
[2020-12-18] MEDS: VITAMIN D 1,000 INTERNATIONAL UNITS TABLET PO SCH (20:30)
[2020-12-18] MEDS: RAMELTEON 8 MG TAB (ROZEREM) PO PRN (20:30)
[2020-12-18] MEDS: ENOXAPARIN 40MG/0.4ML SYRINGE (J1650 PER 10MG) SC SCH (20:31)
[2020-12-19] VITALS (8 sets, daily range): BP systolic 119–132; BP diastolic 57–66; O2SAT 90–94
[2020-12-19 06:39] LABS: BASO % 0.2 % (0.0-1.0); HEMATOCRIT 38.3 % (36.0-47.0); HEMOGLOBIN 12.5 g/dl (12.0-15.5); LYMPH # 1.7 10^3/uL (1.5-5.0); LYMPH % 9.6 % (24.0-44.0); MEAN CORPUSCULAR HEMOGLOBIN 31.3 pg (27.0-33.0); MEAN CORPUSCULAR HGB CONC 32.6 g/dl (32.0-36.5); MEAN CORPUSCULAR VOLUME 95.8 fl (80.0-96.0); MONO # 1.2 10^3/uL (0.0-0.8); MONO % 7.1 % (2.0-8.0); NEUTROPHILS # 14.3 10^3/uL (1.5-8.5); NEUTROPHILS % 81.6 % (36.0-66.0); PLATELET COUNT, AUTOMATED 228 10^3/uL (150-450); WHITE BLOOD COUNT 17.5 10^3/uL (4.0-10.0)
[2020-12-19 06:59] LABS: BLOOD UREA NITROGEN 25 MG/DL (7-18); CALCIUM LEVEL 7.8 MG/DL (8.8-10.2); CARBON DIOXIDE LEVEL 26 MEQ/L (21-32); CHLORIDE LEVEL 105 MEQ/L (98-107); CREATININE FOR GFR 0.74 MG/DL (0.55-1.30); GLOMERULAR FILTRATION RATE > 60.0 (>32); GLUCOSE, FASTING 140 MG/DL (70-100); POTASSIUM SERUM 4.6 MEQ/L (3.5-5.1); SODIUM LEVEL 137 MEQ/L (136-145)
[2020-12-19] MEDS: dexameTHASONE 20MG/5ML VIAL (J1100 PER 1MG) IV SCH ×2 (08:18→20:24)
[2020-12-19] MEDS: LACTOBACILLUS ACIDOPHILUS CAP (BACID) PO SCH ×2 (08:18→20:24)
[2020-12-19] MEDS: MESALAMINE 400 MG CAPSULE DELAYED RELEASE (DELZICOL) PO SCH ×3 (08:18→20:24)
[2020-12-19] MEDS: CALCIUM/VITAMIN D 500 MG TAB PO SCH (08:18)
[2020-12-19] MEDS: POTASSIUM CHLORIDE 10MEQ SR TABLET PO SCH ×2 (08:18→20:25)
[2020-12-19] MEDS: ASPIRIN 81MG ENTERIC TABLET PO SCH (08:18)
--- NOTE | 2020-12-19 09:42 | IPN ---
PROGRESS NOTE DATE: 12/19/2020 SUBJECTIVE: The patient continues to have dyspnea on exertion. No fever or chills overnight. No chest pain, pressure, tightness, nausea, vomiting, diarrhea, abdominal pain, lightheadedness, or dizziness. OBJECTIVE: VITAL SIGNS: Temperature 97.1, pulse 53, respiratory rate 17, blood pressure 124/57, 92% on 3 L nasal cannula. GENERAL: The patient is awake, alert, and oriented to person, place, and time. Answering questions appropriately. No use of respiratory accessory muscles. Able to speak in full sentences. No tripod positioning. HEENT: No JVD, thyromegaly, or cervical lymphadenopathy. Moist mucous membranes. LUNGS: Diminished. Air entry is equal. HEART: S1, S2. Sinus rhythm. ABDOMEN: Soft, nontender, and nondistended with positive bowel sounds. EXTREMITIES: No cyanosis or clubbing. No pitting edema. LABORATORY DATA/IMAGING STUDIES/MICROBIOLOGY: Please see the chart. ASSESSMENT: This is an 85-year-old female with history of breast cancer status post right mastectomy with hormonal therapy on tamoxifen, with a history of ulcerative colitis on chronic mesalamine, prior history of smoking, unvaccinated for Coronavirus who complained of myalgias on 12/07 and was found to be positive for Coronavirus on 12/10. Received monoclonal antibodies on 12/13. Admitted for COVID pneumonia with community-acquired pneumonia most likely bacterial with acute hypoxic respiratory failure. She was also recently treated for a urinary tract infection (UTI) with Macrobid as an outpatient currently on Levaquin. IMPRESSION: 1. Acute hypoxic respiratory failure. 2. COVID-19 pneumonia. 3. Community-acquired bacterial pneumonia. 4. Recent urinary tract infection on 12/13/2020. 5. Diarrhea induced by Coronavirus and ulcerative colitis not in exacerbation. 6. History of breast cancer status post right mastectomy on hormonal therapy. 7. Headache and nausea secondary to Coronavirus-19. PLAN: Patient remains hypoxic. She is currently being treated with remdesivir, Decadron, aspirin, Lovenox, baricitinib, and Levaquin, but remains hypoxic. Diarrhea has resolved. Will obtain physical therapy (PT) and occupational therapy (OT) consultation. Keep saturations above 90% to 92%. MTDD
[2020-12-19 14:17] LABS: ALBUMIN 2.5 GM/DL (3.2-5.2); BILIRUBIN,DIRECT 0.1 MG/DL (0.0-0.2); BILIRUBIN,TOTAL 0.3 MG/DL (0.2-1.0); TOTAL PROTEIN 6.4 GM/DL (6.4-8.2)
[2020-12-19] MEDS: LevoFLOXacin 750 MG TABLET PO SCH (16:07)
[2020-12-19] MEDS: VITAMIN D 1,000 INTERNATIONAL UNITS TABLET PO SCH (20:24)
[2020-12-19] MEDS: ENOXAPARIN 40MG/0.4ML SYRINGE (J1650 PER 10MG) SC SCH (20:24)
[2020-12-20] VITALS (10 sets, daily range): BP systolic 113–118; BP diastolic 55–62; O2SAT 89–95
[2020-12-20 06:46] LABS: INR 1.05; PROTHROMBIN TIME 14.1 SECONDS (12.7-14.5)
[2020-12-20 06:47] LABS: PARTIAL THROMBOPLASTIN TIME 33.9 SECONDS (25.9-37.0)
[2020-12-20 07:06] LABS: ALBUMIN 2.3 GM/DL (3.2-5.2); ALT/SGPT 41 U/L (12-78); BILIRUBIN,DIRECT < 0.1 MG/DL (0.0-0.2); BILIRUBIN,TOTAL 0.4 MG/DL (0.2-1.0); CPK CREATINE PHOSPHOKINASE 23 U/L (26-192); FERRITIN 493 NG/ML (8-252); LDH LACTATE DEHYDROGENASE 169 U/L (84-246); NT-PRO BNP 261 PG/ML (<450); TROPONIN I < 0.02 NG/ML (< 0.10)
[2020-12-20 07:08] LABS: HEMATOCRIT 39.2 % (36.0-47.0); MEAN CORPUSCULAR HEMOGLOBIN 31.8 pg (27.0-33.0); MEAN CORPUSCULAR HGB CONC 33.2 g/dl (32.0-36.5); MEAN CORPUSCULAR VOLUME 95.8 fl (80.0-96.0); PLATELET COUNT, AUTOMATED 233 10^3/uL (150-450); RED BLOOD COUNT 4.09 10^6/uL (4.00-5.40); WHITE BLOOD COUNT 17.4 10^3/uL (4.0-10.0)
[2020-12-20] MEDS: dexameTHASONE 20MG/5ML VIAL (J1100 PER 1MG) IV SCH ×2 (08:24→22:24)
[2020-12-20] MEDS: FIORICET TAB PO PRN (08:25)
[2020-12-20] MEDS: MESALAMINE 400 MG CAPSULE DELAYED RELEASE (DELZICOL) PO SCH ×3 (08:26→22:23)
[2020-12-20] MEDS: SENNA 8.6 MG TAB (SENOKOT) PO PRN (08:26)
[2020-12-20] MEDS: ASPIRIN 81MG ENTERIC TABLET PO SCH (08:26)
[2020-12-20] MEDS: LACTOBACILLUS ACIDOPHILUS CAP (BACID) PO SCH ×2 (08:26→22:22)
[2020-12-20] MEDS: CALCIUM/VITAMIN D 500 MG TAB PO SCH (08:26)
[2020-12-20] MEDS: POTASSIUM CHLORIDE 10MEQ SR TABLET PO SCH ×2 (08:26→22:23)
--- NOTE | 2020-12-20 10:34 | REP ---
INDICATION: SOB. COMPARISON: Multiple the latest 11/13/2020 TECHNIQUE: Portable FINDINGS: The technique utilized in obtaining the radiograph has magnified the cardiac silhouette and accentuated the interstitial markings. The cardiomediastinal silhouette is unchanged. The subtle patchy opacity in the left lower lobe is unchanged. No new abnormal opacities have developed. The pleural angles remain sharp. There is no change in the osseous structures. IMPRESSION: No significant change from 12/14/2020. <Electronically signed by Zeferino Orosco > 12/20/20 1031
--- NOTE | 2020-12-20 11:05 | IPNPDOC ---
Date Seen The patient was seen on 12/20/20. Progress Note SUBJECTIVE: Complains of cough productive of white sputum without fever chills or worsening shortness of breath Denies nausea vomiting abdominal pain diarrhea chest pain pressure tightness Denies decrease in appetite anorexia weight loss. Occasional headache Which improves with pain medications OBJECTIVE: VITAL SIGNS: See below GENERAL: No distress able to complete her sentences HEENT: No JVD, thyromegaly, or cervical lymphadenopathy. Moist mucous membranes. LUNGS: Diminished. Air entry is equal. HEART: S1, S2. Sinus rhythm. ABDOMEN: Soft, nontender, and nondistended with positive bowel sounds. EXTREMITIES: No cyanosis or clubbing. No pitting edema. LABORATORY DATA/IMAGING STUDIES/MICROBIOLOGY: Please see the chart. ASSESSMENT: This is an 85-year-old female with history of breast cancer status post right mastectomy with hormonal therapy on tamoxifen, with a history of ulcerative colitis on chronic mesalamine, prior history of smoking, unvaccinated for Coronavirus who complained of myalgias on 12/07 and was found to be positive for Coronavirus on 12/10. Received monoclonal antibodies on 12/13. Admitted for COVID pneumonia with community-acquired pneumonia most likely bacterial with acute hypoxic respiratory failure. She was also recently treated for a urinary tract infection (UTI) with Macrobid as an outpatient currently on Levaquin. IMPRESSION: 1. Acute hypoxic respiratory failure. 2. COVID-19 pneumonia. 3. Community-acquired bacterial pneumonia. 4. Recent urinary tract infection on 12/13/2020. 5. Diarrhea induced by Coronavirus and ulcerative colitis not in exacerbation. 6. History of breast cancer status post right mastectomy on hormonal therapy. 7. Headache and nausea secondary to Coronavirus-19. PLAN: Patient has completed 5 days of remdesivir she is still currently on baricitinib Decadron 10 IV every 12 Despite negative BNP, patient is requiring more oxygen we will recheck a chest x-ray today. Still on Levaquin for bacterial pneumonia. No more diarrhea. PT OT consulted. On supplemental oxygen currently at 5 L will try to titrate but keep the O2 sat at 90 to 92%. Encouraging Acapella and incentive spirometry prone positioning VS, I&O, 24H, Fishbone Vital Signs/I&O Vital Signs Date Time Temp Pulse Resp B/P (MAP) Pulse Ox O2 Delivery O2 Flow Rate FiO2 12/20/20 10:37 3.0 12/20/20 08:55 18 12/20/20 06:47 97.4 64 113/62 (79) 94 Nasal Cannula I&O- Last 24 Hours up to 6 AM 12/20/20 06:00 Intake Total 1680 ml Output Total 1600 ml Balance 80 ml Laboratory Data 24H LABS Laboratory Tests 2 12/19/20 13:33: Magnesium Level 2.0, Total Bilirubin 0.3, Direct Bilirubin 0.1, Aspartate Amino Transf (AST/SGOT) 31, Alanine Aminotransferase (ALT/SGPT) 47, Alkaline Phosphatase 73, Total Protein 6.4, Albumin 2.5L, Albumin/Globulin Ratio 0.6L 12/20/20 05:41: Total Bilirubin 0.4, Direct Bilirubin < 0.1, Aspartate Amino Transf (AST/SGOT) 16, Alanine Aminotransferase (ALT/SGPT) 41, Alkaline Phosphatase 64, Total Protein 6.0L, Albumin 2.3L, Albumin/Globulin Ratio 0.6L, Nucleated Red Blood Cells % (auto) 0.0, Prothrombin Time 14.1H, Prothromb Time International Ratio 1.05, Activated Partial Thromboplast Time 33.9, Fibrinogen 269, Ferritin 493H, Lactate Dehydrogenase 169, Total Creatine Kinase 23L, Troponin I < 0.02, IS-Fbd-F-Type Natriuretic Peptide 261 CBC/BMP Laboratory Tests 12/20/20 05:41 Microbiology Microbiology 12/14/20 Gastrointestinal Tract Panel (PCR) - Final, Complete 12/14/20 Blood Culture - Final, Complete NO GROWTH AFTER 5 DAYS 12/14/20 Blood Culture - Final, Complete NO GROWTH AFTER 5 DAYS ZACK JACOBS MD Dec 20, 2020 11:05
[2020-12-20] MEDS: LevoFLOXacin 750 MG TABLET PO SCH (15:57)
[2020-12-20] MEDS: VITAMIN D 1,000 INTERNATIONAL UNITS TABLET PO SCH (22:23)
[2020-12-20] MEDS: ENOXAPARIN 40MG/0.4ML SYRINGE (J1650 PER 10MG) SC SCH (22:23)
[2020-12-21] VITALS (9 sets, daily range): BP systolic 111–127; BP diastolic 52–59; O2SAT 91–94
[2020-12-21] MEDS: MESALAMINE 400 MG CAPSULE DELAYED RELEASE (DELZICOL) PO SCH ×3 (08:36→21:28)
[2020-12-21] MEDS: ASPIRIN 81MG ENTERIC TABLET PO SCH (08:36)
[2020-12-21] MEDS: LACTOBACILLUS ACIDOPHILUS CAP (BACID) PO SCH ×2 (08:36→21:28)
[2020-12-21] MEDS: CALCIUM/VITAMIN D 500 MG TAB PO SCH (08:36)
[2020-12-21] MEDS: dexameTHASONE 20MG/5ML VIAL (J1100 PER 1MG) IV SCH ×2 (08:36→21:27)
[2020-12-21] MEDS: POTASSIUM CHLORIDE 10MEQ SR TABLET PO SCH ×2 (08:36→21:27)
[2020-12-21] MEDS ORDERED: SENOKOT S TAB PO ONE (10:30)
--- NOTE | 2020-12-21 11:53 | IPN ---
PROGRESS NOTE DATE: 12/21/2020 SUBJECTIVE: The patient denies chest pain, pressure tightness, shortness of breath, cough, nausea, vomiting, diarrhea, abdominal pain. She complains of constipation and wants a bowel regimen. She is complaining of generalized weakness and per physical therapy, needs 3-5 more sessions and discharge home with services. No other issues per nursing overnight. O2 saturation remains at 90-93% and was able to be titrated for 5 liters to 2 liters and 1 liter this morning. The patient does not feel comfortable going home today, complains of weakness but able to ambulate from the bed to the bathroom with walker. OBJECTIVE: Vitals: Temperature 96.5, pulse 57, respiratory rate 18, blood pressure 120/52, 93% on one liter nasal cannula. General: Awake, alert and oriented x3, no conversational dyspnea, able to speak in full sentences. No JVD, thyromegaly or cervical lymphadenopathy. Heart: S1, S2, sinus bradycardia, ventricular rate of 57 to 59. Lungs: Diminished but clear to auscultation. No wheezing, rales or rhonchi. Abdomen: Soft, nontender and nondistended. Extremities: No cyanosis or clubbing. ASSESSMENT AND PLAN: This is an 85-year-old female with history of breast cancer with right mastectomy, hormonal therapy with tamoxifen, ulcerative colitis on mesalamine, smoking, unvaccinated for COVID, presents with myalgias on 12/07 and had coronavirus confirmed on 12/10, received monoclonal antibodies on 12/13. ACTIVE ISSUES: 1. Acute hypoxic respiratory failure requiring one liter of supplemental oxygen. 2. COVID-19 pneumonia. 3. Community acquired bacterial pneumonia. 4. Recent UTI on 12/13/2020. 5. Diarrhea-induced COVID and ulcerative colitis is not an exacerbation. 6. History of breast cancer, status post right mastectomy on hormonal therapy. 7. Headache, nausea due coronavirus has resolved. 8. Constipation. PLAN: Continue with physical therapy. Patient is doing well, completed five days of remdesivir, still on baricitinib, steroids at 10 mg IV q.12 hourly. Patient denies any dysgeusia, anosmia, tolerating her diet well. She complains of constipation today and would like to have a bowel regimen. Discharge home tomorrow if stable overnight. Per physical therapy, however, patient needs 3-5 more sessions. MTDD
[2020-12-21] MEDS ORDERED: MOM 30ML SUSPENSION UDC PO ONE (12:00)
[2020-12-21] MEDS: ENOXAPARIN 40MG/0.4ML SYRINGE (J1650 PER 10MG) SC SCH (21:26)
[2020-12-21] MEDS: VITAMIN D 1,000 INTERNATIONAL UNITS TABLET PO SCH (21:27)
[2020-12-22] VITALS (8 sets, daily range): BP systolic 102–112; BP diastolic 54–56; O2SAT 93–95
[2020-12-22] MEDS: CALCIUM/VITAMIN D 500 MG TAB PO SCH (08:20)
[2020-12-22] MEDS: dexameTHASONE 20MG/5ML VIAL (J1100 PER 1MG) IV SCH ×2 (08:20→21:11)
[2020-12-22] MEDS: LACTOBACILLUS ACIDOPHILUS CAP (BACID) PO SCH ×2 (08:20→21:12)
[2020-12-22] MEDS: FIORICET TAB PO PRN (08:21)
[2020-12-22] MEDS: SENNA 8.6 MG TAB (SENOKOT) PO PRN (08:23)
[2020-12-22] MEDS: ASPIRIN 81MG ENTERIC TABLET PO SCH (08:23)
[2020-12-22] MEDS: POTASSIUM CHLORIDE 10MEQ SR TABLET PO SCH ×2 (08:23→21:12)
[2020-12-22] MEDS: MESALAMINE 400 MG CAPSULE DELAYED RELEASE (DELZICOL) PO SCH ×3 (08:23→21:12)
--- NOTE | 2020-12-22 14:49 | IPNPDOC ---
Date Seen The patient was seen on 12/22/20. Progress Note SUBJECTIVE: still hypoxic and per rn dropped to low mid 80% ow sat despite 2liters o2 when she ambulated despite passing hse by physical therapy. repeat eval requested today. no f/c/sob at baseline still needing supplemental oxygen and needed a few minutes to recover. OBJECTIVE: PE Vitals: see below General: lying in bed 30 degree hob elevation Awake, alert and oriented x3, no conversational dyspnea, able to speak in full sentences. No JVD, thyromegaly or cervical lymphadenopathy. Heart: S1, S2, sinus bradycardia no murmurs Lungs: Diminished but clear to auscultation. No wheezing, rales or rhonchi. Abdomen: Soft, nontender and nondistended. Extremities: No cyanosis or clubbing. ASSESSMENT AND PLAN: This is an 85-year-old female with history of breast cancer with right mastectomy, hormonal therapy with tamoxifen, ulcerative colitis on mesalamine, smoking, unvaccinated for COVID, presents with myalgias on 12/07 and had coronavirus confirmed on 12/10, received monoclonal antibodies on 12/13. ACTIVE ISSUES: 1. Acute hypoxic respiratory failure requiring one liter of supplemental oxygen. 2. COVID-19 pneumonia. 3. Community acquired bacterial pneumonia. 4. Recent UTI on 12/13/2020. 5. Diarrhea-induced COVID and ulcerative colitis is not an exacerbation. 6. History of breast cancer, status post right mastectomy on hormonal therapy. 7. Headache, nausea due coronavirus has resolved. 8. Constipation. PLAN: may dc in am if stable. completed remdesevir. unable to be weaned off o2 and will need 2liters at discharge. repeat hse eval since pt was much more hypoxic yesterday and took several minutes to recover. had good bm yesterday and feels better today. will need home care referral and quarantine for 20 days after confirmed covid test. VS, I&O, 24H, Fishbone Vital Signs/I&O Vital Signs Date Time Temp Pulse Resp B/P (MAP) Pulse Ox O2 Delivery O2 Flow Rate FiO2 12/22/20 14:24 97.9 65 16 112/56 (74) 92 Nasal Cannula 2.0 I&O- Last 24 Hours up to 6 AM 12/22/20 06:00 Intake Total 640 ml Output Total 400 ml Balance 240 ml Laboratory Data Microbiology Microbiology 12/14/20 Gastrointestinal Tract Panel (PCR) - Final, Complete 12/14/20 Blood Culture - Final, Complete NO GROWTH AFTER 5 DAYS 12/14/20 Blood Culture - Final, Complete NO GROWTH AFTER 5 DAYS ZACK JACOBS MD Dec 22, 2020 14:49
[2020-12-22] MEDS: ENOXAPARIN 40MG/0.4ML SYRINGE (J1650 PER 10MG) SC SCH (21:12)
[2020-12-22] MEDS: VITAMIN D 1,000 INTERNATIONAL UNITS TABLET PO SCH (21:12)
[2020-12-23] VITALS: O2SAT 96
[2020-12-23 04:00] VITALS: BP 110/56; O2SAT 94
[2020-12-23 08:00] VITALS: O2SAT 94
[2020-12-23] MEDS: MESALAMINE 400 MG CAPSULE DELAYED RELEASE (DELZICOL) PO SCH (09:36)
[2020-12-23] MEDS: dexameTHASONE 20MG/5ML VIAL (J1100 PER 1MG) IV SCH (09:36)
[2020-12-23] MEDS: CALCIUM/VITAMIN D 500 MG TAB PO SCH (09:36)
[2020-12-23] MEDS: LACTOBACILLUS ACIDOPHILUS CAP (BACID) PO SCH (09:36)
[2020-12-23] MEDS: ASPIRIN 81MG ENTERIC TABLET PO SCH (09:36)
[2020-12-23] MEDS: POTASSIUM CHLORIDE 10MEQ SR TABLET PO SCH (09:37)
[2020-12-23] MEDS ORDERED: PRED10TA2 PO (10:24)
[2020-12-23 12:00] VITALS: O2SAT 95
[2020-12-23] MEDS ORDERED: FIOR1CAP PO (16:11)
== END 2020-12-23 16:13 | disposition home health service (06) | DRG 177 ==
LOC: EDBD 11:22 → M ED 11:22 → M ED INP 14:40 → ENRESERV 15:24 → M 4MAIN 18:23
PROVIDERS: ADMIT Internal Medicine; ATTEND General Practice
DX: U07.1 COVID-19 (principal); J12.82 Pneumonia due to coronavirus disease 2019; J96.01 Acute respiratory failure with hypoxia; K51.90 Ulcerative colitis, unspecified, without complications; Z85.3 Personal history of malignant neoplasm of breast; Z79.82 Long term (current) use of aspirin; Z79.899 Other long term (current) drug therapy

== ENCOUNTER → 2021-05-03 | Outpatient (CLI) | payer MEDICARE ==
[~2021-05-03] MED LIST changes: +ACET500T15 PO; +ASPI81TA26 PO; +BACITAB PO; +CITRTAB19 PO; +FIOR1CAP PO; -LEVO500T3 PO; +LEVO500T4 PO; +MACR100C43 PO; +PRED10TA2 PO; +VITA100093 PO
== END ==
LOC: M WHC 13:36
PROVIDERS: ATTEND Internal Medicine
DX: Z12.31 Encounter for screening mammogram for malignant neoplasm of breast (principal); Z85.3 Personal history of malignant neoplasm of breast; Z90.11 Acquired absence of right breast and nipple

== ENCOUNTER → 2022-05-31 | Outpatient (REF) | payer MEDICARE ==
[~2022-05-31] MED LIST changes: +3 SEMIS2 XX; +ASCO500T PO; +ASPI-1 PO; +D3 H2000 PO; +LEVO1TAB39 PO; -LEVO500T4 PO; +LISI20TA33 PO; +LISI5TAB11 PO; +POTA-149 PO; +PROB250C PO; +RISATAB3 PO; +VITA100065 PO
== END ==
LOC: M LAB REF 16:14
PROVIDERS: ATTEND Internal Medicine Gastroenterology
DX: K51.90 Ulcerative colitis, unspecified, without complications (principal); R19.7 Diarrhea, unspecified

== ENCOUNTER 2022-06-07 12:28 | Day surgery (SDC) | payer MEDICARE ==
[~2022-06-07] VITALS: Ht 157.5 cm; Wt 69.4 kg
[~2022-06-07 12:28] MED LIST changes: +NS 1,000 ML IV ONE
[2022-06-07] MEDS ORDERED: LIDOCAINE 2% 100MG/5ML SDV (FOR ANES.) As Ordered ONE (14:33)
[2022-06-07] MEDS ORDERED: propofoL 200 MG/20 ML VIAL As Ordered ONE (14:33)
[2022-06-07 15:05] VITALS: BP 109/53
== END 2022-06-07 15:23 | disposition home or self-care (01) ==
LOC: M OPP 12:28
PROVIDERS: ATTEND Internal Medicine Gastroenterology
DX: K51.311 Ulcerative (chronic) rectosigmoiditis with rectal bleeding (principal); K63.89 Other specified diseases of intestine; K62.5 Hemorrhage of anus and rectum; K64.0 First degree hemorrhoids; K31.89 Other diseases of stomach and duodenum; R12 Heartburn

== ENCOUNTER 2022-06-20 13:58 | Outpatient (CLI) | payer MEDICARE ==
[~2022-06-20] VITALS: Ht 165.1 cm; Wt 70.3 kg
[~2022-06-20 13:58] MED LIST changes: -NS 1,000 ML IV ONE
[2022-06-20 14:20] VITALS: BP 145/58
[2022-06-20] MEDS ORDERED: VEDOLIZUMAB 300 MG in NS 250 ML IV ONE (15:00)
[2022-06-20] MEDS ORDERED: diphenhydrAMINE 25MG CAP PO ONE (15:00)
[2022-06-20] MEDS ORDERED: ACETAMINOPHEN TAB 650MG DOSE (2X325MG) PO ONE (15:00)
[2022-06-20 15:43] VITALS: BP 146/77
== END 2022-06-20 15:45 | disposition home or self-care (01) ==
LOC: M INFU 13:58
PROVIDERS: ATTEND Internal Medicine Gastroenterology
DX: K50.90 Crohn's disease, unspecified, without complications (principal)
CPT/HCPCS: 96365; J3380

== ENCOUNTER 2022-07-04 14:00 | Outpatient (CLI) | payer MEDICARE ==
[~2022-07-04] VITALS: Ht 162.6 cm; Wt 70.0 kg
[~2022-07-04 14:00] MED LIST changes: +ACETAMINOPHEN TAB 650MG DOSE (2X325MG) PO ONE; +VEDOLIZUMAB 300 MG in NS 250 ML IV ONE; +diphenhydrAMINE 25MG CAP PO ONE
[2022-07-04 14:11] VITALS: BP 130/62
[2022-07-04 15:26] VITALS: BP 137/66
== END 2022-07-04 15:25 | disposition home or self-care (01) ==
LOC: M INFU 14:00
PROVIDERS: ATTEND Internal Medicine Gastroenterology
DX: K50.90 Crohn's disease, unspecified, without complications (principal)
CPT/HCPCS: 96365; J3380

== ENCOUNTER → 2022-07-07 | Outpatient (CLI) | payer MEDICARE ==
[~2022-07-07] MED LIST changes: -ACETAMINOPHEN TAB 650MG DOSE (2X325MG) PO ONE; -VEDOLIZUMAB 300 MG in NS 250 ML IV ONE; -diphenhydrAMINE 25MG CAP PO ONE
[2022-07-07 19:15] LABS: HEMATOCRIT 40.2 % (36.0-47.0); HEMOGLOBIN 12.3 g/dl (12.0-15.5); MEAN CORPUSCULAR HEMOGLOBIN 32.1 pg (27.0-33.0); MEAN CORPUSCULAR HGB CONC 30.6 g/dl (32.0-36.5); PLATELET COUNT, AUTOMATED 319 10^3/uL (150-450); RED BLOOD COUNT 3.83 10^6/uL (4.00-5.40); WHITE BLOOD COUNT 9.7 10^3/uL (4.0-10.0)
[2022-07-07 19:37] LABS: BLOOD UREA NITROGEN 16 MG/DL (9-23); CALCIUM LEVEL 8.4 MG/DL (8.3-10.6); CARBON DIOXIDE LEVEL 29 MMOL/L (20-31); CHLORIDE LEVEL 101 MMOL/L (98-107); CREATININE FOR GFR 0.89 MG/DL (0.55-1.30); GLOMERULAR FILTRATION RATE > 60.0 (>32); GLUCOSE, FASTING 111 MG/DL (74-106); SODIUM LEVEL 136 MMOL/L (136-145)
== END ==
LOC: M WUC 15:19
PROVIDERS: ATTEND Internal Medicine
DX: J30.9 Allergic rhinitis, unspecified (principal); I70.0 Atherosclerosis of aorta; J84.9 Interstitial pulmonary disease, unspecified

== ENCOUNTER 2022-07-23 11:04 | Emergency (ER) | payer MEDICARE ==
[~2022-07-23] VITALS: Ht 157.5 cm; Wt 70.5 kg
[2022-07-23] MEDS ORDERED: NS 1,000 ML IV ONE (11:40)
[2022-07-23 12:09] LABS: BASO % 0.3 % (0.0-1.0); EOS # 0.5 10^3/uL (0.0-0.5); EOS % 4.8 % (0.0-3.0); HEMATOCRIT 36.8 % (36.0-47.0); HEMOGLOBIN 12.1 g/dl (12.0-15.5); LYMPH % 27.6 % (24.0-44.0); MEAN CORPUSCULAR HEMOGLOBIN 32.6 pg (27.0-33.0); MEAN CORPUSCULAR HGB CONC 32.9 g/dl (32.0-36.5); MEAN CORPUSCULAR VOLUME 99.2 fl (80.0-96.0); MONO # 1.3 10^3/uL (0.0-0.8); MONO % 12.3 % (2.0-8.0); NEUTROPHILS # 5.9 10^3/uL (1.5-8.5); NEUTROPHILS % 54.3 % (36.0-66.0); PLATELET COUNT, AUTOMATED 393 10^3/uL (150-450); RED BLOOD COUNT 3.71 10^6/uL (4.00-5.40); WHITE BLOOD COUNT 10.9 10^3/uL (4.0-10.0)
[2022-07-23 12:27] LABS: LIPASE 22 U/L (12-53)
[2022-07-23 12:30] LABS: ALBUMIN 2.8 G/DL (3.2-5.2); ALKALINE PHOSPHATASE 87 U/L (46-116); ALT/SGPT 13 U/L (7.0-40); AST/SGOT 25 U/L (<34); BILIRUBIN,DIRECT < 0.1 MG/DL (<0.4); BILIRUBIN,TOTAL 0.3 MG/DL (0.3-1.2); BLOOD UREA NITROGEN 14 MG/DL (9-23); CALCIUM LEVEL 8.3 MG/DL (8.3-10.6); CARBON DIOXIDE LEVEL 25 MMOL/L (20-31); CHLORIDE LEVEL 102 MMOL/L (98-107); CREATININE FOR GFR 0.92 MG/DL (0.55-1.30); GLOMERULAR FILTRATION RATE > 60.0 (>32); GLUCOSE, FASTING 89 MG/DL (74-106); MAGNESIUM LEVEL 1.7 MG/DL (1.8-2.4); POTASSIUM SERUM 4.9 MMOL/L (3.5-5.1); SODIUM LEVEL 135 MMOL/L (136-145); TOTAL PROTEIN 6.8 G/DL (5.7-8.2)
[2022-07-23] MEDS ORDERED: MAG SULF 1GM/100ML (MAG RUN) 1 GM in IV 1 EA IV ONE (12:35)
[2022-07-23 14:30] VITALS: BP 133/60; TEMP 96.6; O2SAT 96
== END 2022-07-23 14:30 | disposition home or self-care (01) ==
LOC: M ED 11:04
DX: R19.7 Diarrhea, unspecified (principal); Z87.19 Personal history of other diseases of the digestive system; Z86.19 Personal history of other infectious and parasitic diseases; Z85.3 Personal history of malignant neoplasm of breast; Z79.82 Long term (current) use of aspirin; Z79.899 Other long term (current) drug therapy
CPT/HCPCS: 80048; 80076; 83690; 83735; 85025; 96361; 96365; 99284; J3475

== ENCOUNTER → 2022-07-24 | Outpatient (REF) | payer MEDICARE | LOC: M LAB REF 17:05 | PROVIDERS: ATTEND Emergency Medicine | DX: R19.7 Diarrhea, unspecified (principal) ==

== ENCOUNTER 2022-08-01 14:40 | Outpatient (CLI) | payer MEDICARE ==
[~2022-08-01] VITALS: Ht 157.5 cm; Wt 70.5 kg
[2022-08-01 14:40] VITALS: BP 126/65; O2SAT 90
[2022-08-01] MEDS ORDERED: VEDOLIZUMAB 300 MG in NS 250 ML IV ONE (15:00)
[2022-08-01] MEDS ORDERED: diphenhydrAMINE 25MG CAP PO ONE (15:00)
[2022-08-01] MEDS ORDERED: ACETAMINOPHEN TAB 650MG DOSE (2X325MG) PO ONE (15:00)
[2022-08-01 16:00] VITALS: BP 118/76; O2SAT 94
== END 2022-08-01 16:00 ==
LOC: M INFU 14:40
PROVIDERS: ATTEND Internal Medicine Gastroenterology
DX: K50.90 Crohn's disease, unspecified, without complications (principal)
CPT/HCPCS: 96365; J3380

== ENCOUNTER 2022-09-26 14:20 | Outpatient (CLI) | payer MEDICARE ==
[~2022-09-26] VITALS: Ht 162.6 cm; Wt 70.0 kg
[2022-09-26 14:25] VITALS: BP 143/101; TEMP 98.1; O2SAT 93
[2022-09-26] MEDS ORDERED: diphenhydrAMINE 25MG CAP PO ONE (14:30)
[2022-09-26] MEDS ORDERED: VEDOLIZUMAB 300 MG in NS 250 ML IV ONE (14:30)
[2022-09-26] MEDS ORDERED: ACETAMINOPHEN TAB 650MG DOSE (2X325MG) PO ONE (14:30)
[2022-09-26 15:46] VITALS: BP 151/70; TEMP 97.8; O2SAT 93
== END 2022-09-26 15:45 ==
LOC: M INFU 14:20
PROVIDERS: ATTEND Internal Medicine Gastroenterology
DX: K50.90 Crohn's disease, unspecified, without complications (principal)
CPT/HCPCS: 96365; J3380

== ENCOUNTER 2022-11-16 14:03 | Outpatient (CLI) | payer MEDICARE ==
[~2022-11-16] VITALS: Ht 157.5 cm; Wt 72.0 kg
[~2022-11-16 14:03] MED LIST changes: +ACETAMINOPHEN TAB 650MG DOSE (2X325MG) PO ONE; +VEDOLIZUMAB 300 MG in NS 250 ML IV ONE; +diphenhydrAMINE 25MG CAP PO ONE
[2022-11-16 14:12] VITALS: BP 146/65; TEMP 97; O2SAT 96
[2022-11-16 15:15] VITALS: BP 137/66; O2SAT 92
== END 2022-11-16 15:20 ==
LOC: M INFU 14:03
PROVIDERS: ATTEND Internal Medicine Gastroenterology
DX: K50.90 Crohn's disease, unspecified, without complications (principal)

== ENCOUNTER → 2022-12-28 | Outpatient (CLI) | payer MEDICARE ==
[~2022-12-28] VITALS: Ht 157.5 cm; Wt 70.0 kg
[2022-12-28 14:35] VITALS: BP 146/63; TEMP 97.6; O2SAT 95
[2022-12-28 16:10] VITALS: BP 160/75; O2SAT 97
== END ==
LOC: M INFU 13:35
PROVIDERS: ATTEND Internal Medicine Gastroenterology
DX: K50.90 Crohn's disease, unspecified, without complications (principal)

== ENCOUNTER 2023-02-08 14:00 | Outpatient (CLI) | payer MEDICARE ==
[~2023-02-08] VITALS: Ht 154.9 cm; Wt 70.3 kg
[2023-02-08 14:10] VITALS: BP 159/60; TEMP 97.5; O2SAT 96
[2023-02-08 15:15] VITALS: BP 149/67; O2SAT 95
== END 2023-02-08 15:15 | disposition home or self-care (01) ==
LOC: M INFU 14:00
PROVIDERS: ATTEND Internal Medicine Gastroenterology
DX: K50.90 Crohn's disease, unspecified, without complications (principal)

== ENCOUNTER 2023-03-22 14:04 | Outpatient (CLI) | payer MEDICARE ==
[~2023-03-22] VITALS: Ht 157.5 cm; Wt 70.0 kg
[~2023-03-22 14:04] MED LIST changes: -ACETAMINOPHEN TAB 650MG DOSE (2X325MG) PO ONE; -VEDOLIZUMAB 300 MG in NS 250 ML IV ONE; -diphenhydrAMINE 25MG CAP PO ONE
[2023-03-22] MEDS: ACETAMINOPHEN TAB 650MG DOSE (2X325MG) PO ONE (14:45)
[2023-03-22] MEDS: diphenhydrAMINE 25MG CAP PO ONE (14:45)
[2023-03-22 14:48] VITALS: BP 148/67; TEMP 98.4; O2SAT 93
[2023-03-22] MEDS: VEDOLIZUMAB 300 MG in NS 250 ML IV ONE (14:53)
[2023-03-22 15:36] VITALS: BP 147/65; TEMP 98.1; O2SAT 100
== END 2023-03-22 15:38 | disposition home or self-care (01) ==
LOC: M INFU 14:04
PROVIDERS: ATTEND Internal Medicine Gastroenterology
DX: K50.90 Crohn's disease, unspecified, without complications (principal)

== ENCOUNTER 2023-05-03 14:15 | Outpatient (CLI) | payer MEDICARE ==
[~2023-05-03] VITALS: Ht 157.5 cm; Wt 72.7 kg
[2023-05-03 14:15] VITALS: BP 182/98; O2SAT 97
[~2023-05-03 14:15] MED LIST changes: +ALBUTEROL SULFATE 2.5MG/0.5ML INH NEB SOLN INH PRN; +EPINEPHrine INJ 1 MG/ML 1ML AMP IM PRN; +NS 1,000 ML IV SCH; +diphenhydrAMINE 50MG/ML VIAL IV PRN; +methylPREDNISolone 125MG 2ML VIAL IV PRN
[2023-05-03] MEDS: diphenhydrAMINE 25MG PO PRIOR TO INFUSION PO ONE (14:16)
[2023-05-03] MEDS: ACETAMINOPHEN 650MG PO PRIOR TO INFUSION PO ONE (14:16)
[2023-05-03] MEDS: VEDOLIZUMAB 300 MG in NS 250 ML IV ONE (14:39)
[2023-05-03 15:15] VITALS: BP 127/78; O2SAT 95
== END 2023-05-03 16:15 ==
LOC: M INFU 14:15
PROVIDERS: ATTEND Internal Medicine Gastroenterology
DX: K50.90 Crohn's disease, unspecified, without complications (principal)

== ENCOUNTER 2023-05-05 18:10 | Emergency (ER) | payer MEDICARE ==
[~2023-05-05] VITALS: Ht 157.5 cm; Wt 79.9 kg
[~2023-05-05 18:10] MED LIST changes: -ALBUTEROL SULFATE 2.5MG/0.5ML INH NEB SOLN INH PRN; -EPINEPHrine INJ 1 MG/ML 1ML AMP IM PRN; -NS 1,000 ML IV SCH; -diphenhydrAMINE 50MG/ML VIAL IV PRN; -methylPREDNISolone 125MG 2ML VIAL IV PRN
[2023-05-05 18:25] VITALS: TEMP 100.1
[2023-05-05] MEDS ORDERED: POTA10CA60 (18:54)
[2023-05-05] MEDS ORDERED: OMEP-173 (18:54)
[2023-05-05] MEDS: NS 500 ML IV ONE (20:11)
[2023-05-05] MEDS: ACETAMINOPHEN TAB 650MG DOSE (2X325MG) PO ONE (20:11)
[2023-05-05 20:36] LABS: BASO % 0.2 % (0.0-1.0); EOS # 0.1 10^3/uL (0.0-0.5); EOS % 0.8 % (0.0-3.0); HEMATOCRIT 39.2 % (36.0-47.0); HEMOGLOBIN 12.3 g/dl (12.0-15.5); LYMPH # 1.3 10^3/uL (1.5-5.0); MEAN CORPUSCULAR HGB CONC 31.4 g/dl (32.0-36.5); MEAN CORPUSCULAR VOLUME 98.7 fl (80.0-96.0); MONO # 0.8 10^3/uL (0.0-0.8); MONO % 7.5 % (2.0-8.0); PLATELET COUNT, AUTOMATED 215 10^3/uL (150-450); RED BLOOD COUNT 3.97 10^6/uL (4.00-5.40); WHITE BLOOD COUNT 10.2 10^3/uL (4.0-10.0)
[2023-05-05 21:00] LABS: LIPASE 28 U/L (12-53)
[2023-05-05 21:02] LABS: ALBUMIN 3.3 G/DL (3.2-5.2); ALKALINE PHOSPHATASE 107 U/L (46-116); ALT/SGPT 20 U/L (7.0-40); AST/SGOT 17 U/L (<34); BILIRUBIN,TOTAL 0.2 MG/DL (0.3-1.2); BLOOD UREA NITROGEN 11 MG/DL (9-23); CALCIUM LEVEL 8.5 MG/DL (8.3-10.6); CARBON DIOXIDE LEVEL 29 MMOL/L (20-31); CHLORIDE LEVEL 107 MMOL/L (98-107); CREATININE FOR GFR 0.82 MG/DL (0.55-1.30); GLOMERULAR FILTRATION RATE > 60.0 (>32); GLUCOSE, FASTING 110 MG/DL (74-106); MAGNESIUM LEVEL 1.7 MG/DL (1.8-2.4); POTASSIUM SERUM 4.4 MMOL/L (3.5-5.1); SODIUM LEVEL 138 MMOL/L (136-145); TOTAL PROTEIN 6.8 G/DL (5.7-8.2)
[2023-05-05 23:45] VITALS: BP 102/55; O2SAT 95
[2023-05-06] MEDS ORDERED: CEFU50TA PO (01:14)
[2023-05-06] MEDS: CEFUROXIME 500 MG TAB PO STA (01:37)
== END 2023-05-06 01:41 | disposition home or self-care (01) ==
LOC: M ED 18:10
DX: B34.8 Other viral infections of unspecified site (principal); N39.0 Urinary tract infection, site not specified; E55.9 Vitamin D deficiency, unspecified; K21.9 Gastro-esophageal reflux disease without esophagitis; Z87.891 Personal history of nicotine dependence; Z79.82 Long term (current) use of aspirin; Z79.83 Long term (current) use of bisphosphonates; Z79.811 Long term (current) use of aromatase inhibitors; Z79.2 Long term (current) use of antibiotics; Z79.899 Other long term (current) drug therapy

== ENCOUNTER 2023-06-14 14:09 | Outpatient (CLI) | payer MEDICARE ==
[~2023-06-14] VITALS: Ht 157.5 cm; Wt 72.7 kg
[~2023-06-14 14:09] MED LIST changes: +ALBUTEROL SULFATE 2.5MG/0.5ML INH NEB SOLN INH PRN; +CEFU50TA PO; +EPINEPHrine INJ 1 MG/ML 1ML AMP IM PRN; +OMEP-173; +POTA10CA70; +diphenhydrAMINE 50MG/ML VIAL IV PRN; +methylPREDNISolone 125MG 2ML VIAL IV PRN
[2023-06-14 14:25] VITALS: BP 124/68; O2SAT 96
[2023-06-14] MEDS ORDERED: NS 1,000 ML IV SCH (14:30)
[2023-06-14] MEDS: ACETAMINOPHEN TAB 650MG DOSE (2X325MG) PO ONE (14:41)
[2023-06-14] MEDS: diphenhydrAMINE 25MG CAP PO ONE (14:41)
[2023-06-14] MEDS: VEDOLIZUMAB 300 MG in NS 250 ML IV ONE (15:01)
[2023-06-14 15:35] VITALS: BP 135/60; O2SAT 94
== END 2023-06-14 15:40 | disposition home or self-care (01) ==
LOC: M INFU 14:09
PROVIDERS: ATTEND Internal Medicine Gastroenterology
DX: K51.90 Ulcerative colitis, unspecified, without complications (principal)

== ENCOUNTER 2023-06-17 04:08 | Emergency (ER) | payer MEDICARE ==
[~2023-06-17] VITALS: Ht 157.5 cm; Wt 75.6 kg
[2023-06-17 04:08] VITALS: BP 185/76; O2SAT 95
[~2023-06-17 04:08] MED LIST changes: -ALBUTEROL SULFATE 2.5MG/0.5ML INH NEB SOLN INH PRN; -EPINEPHrine INJ 1 MG/ML 1ML AMP IM PRN; -diphenhydrAMINE 50MG/ML VIAL IV PRN; -methylPREDNISolone 125MG 2ML VIAL IV PRN
[2023-06-17] MEDS: DOXYCYCLINE HYCLATE 100MG TABLET PO ONE (05:09)
[2023-06-17 05:23] VITALS: TEMP 97.1
== END 2023-06-17 05:24 | disposition home or self-care (01) ==
LOC: M ED 04:08
DX: S50.861A Insect bite (nonvenomous) of right forearm, initial encounter (principal); W57.XXXA Bitten or stung by nonvenomous insect and other nonvenomous arthropods, initial encounter; Y92.9 Unspecified place or not applicable; Y93.9 Activity, unspecified; Y99.9 Unspecified external cause status; Z79.899 Other long term (current) drug therapy

== ENCOUNTER 2023-07-26 14:15 | Outpatient (CLI) | payer MEDICARE ==
[~2023-07-26] VITALS: Ht 157.5 cm; Wt 72.7 kg
[~2023-07-26 14:15] MED LIST changes: +ALBUTEROL SULFATE 2.5MG/0.5ML INH NEB SOLN INH PRN; +EPINEPHrine INJ 1 MG/ML 1ML AMP IM PRN; +NS 1,000 ML IV SCH; +diphenhydrAMINE 50MG/ML VIAL IV PRN; +methylPREDNISolone 125MG 2ML VIAL IV PRN
[2023-07-26] MEDS: diphenhydrAMINE 25MG PO PRIOR TO INFUSION PO ONE (14:24)
[2023-07-26] MEDS: ACETAMINOPHEN 650MG PO PRIOR TO INFUSION PO ONE (14:25)
[2023-07-26 14:30] VITALS: BP 147/86; O2SAT 96
[2023-07-26] MEDS: VEDOLIZUMAB 300 MG in NS 250 ML IV ONE (14:47)
[2023-07-26 15:25] VITALS: BP 161/71; O2SAT 96
== END 2023-07-26 15:27 | disposition home or self-care (01) ==
LOC: M INFU 14:15
PROVIDERS: ATTEND Internal Medicine Gastroenterology
DX: K51.90 Ulcerative colitis, unspecified, without complications (principal)

== ENCOUNTER → 2023-08-23 | Outpatient (REF) | payer MEDICARE ==
[~2023-08-23] MED LIST changes: -ALBUTEROL SULFATE 2.5MG/0.5ML INH NEB SOLN INH PRN; -EPINEPHrine INJ 1 MG/ML 1ML AMP IM PRN; -NS 1,000 ML IV SCH; -diphenhydrAMINE 50MG/ML VIAL IV PRN; -methylPREDNISolone 125MG 2ML VIAL IV PRN
== END ==
LOC: M LAB REF 10:15
PROVIDERS: ATTEND Internal Medicine Gastroenterology
DX: K51.90 Ulcerative colitis, unspecified, without complications (principal); R19.7 Diarrhea, unspecified

== ENCOUNTER 2023-09-06 13:00 | Outpatient (CLI) | payer MEDICARE ==
[~2023-09-06] VITALS: Ht 157.5 cm; Wt 71.8 kg
[~2023-09-06 13:00] MED LIST changes: +ALBUTEROL SULFATE 2.5MG/0.5ML INH NEB SOLN INH PRN; +EPINEPHrine INJ 1 MG/ML 1ML AMP IM PRN; +NS 1,000 ML IV SCH; +diphenhydrAMINE 50MG/ML VIAL IV PRN; +methylPREDNISolone 125MG 2ML VIAL IV PRN
[2023-09-06 13:05] VITALS: BP 131/62; O2SAT 95
[2023-09-06] MEDS: diphenhydrAMINE 25MG PO PRIOR TO INFUSION PO ONE (13:16)
[2023-09-06] MEDS: ACETAMINOPHEN 650MG PO PRIOR TO INFUSION PO ONE (13:16)
[2023-09-06] MEDS: VEDOLIZUMAB 300 MG in NS 250 ML IV ONE (13:36)
== END 2023-09-06 14:20 ==
LOC: M INFU 13:00
PROVIDERS: ATTEND Internal Medicine Gastroenterology
DX: K51.90 Ulcerative colitis, unspecified, without complications (principal)

== ENCOUNTER → 2023-09-28 | Outpatient (CLI) | payer MEDICARE ==
[~2023-09-28] MED LIST changes: -ALBUTEROL SULFATE 2.5MG/0.5ML INH NEB SOLN INH PRN; -EPINEPHrine INJ 1 MG/ML 1ML AMP IM PRN; -NS 1,000 ML IV SCH; -diphenhydrAMINE 50MG/ML VIAL IV PRN; -methylPREDNISolone 125MG 2ML VIAL IV PRN
== END ==
LOC: M WHC 13:25
PROVIDERS: ATTEND Internal Medicine
DX: Z85.3 Personal history of malignant neoplasm of breast (principal); Z12.31 Encounter for screening mammogram for malignant neoplasm of breast; Z90.11 Acquired absence of right breast and nipple

== ENCOUNTER 2023-10-18 12:32 | Outpatient (CLI) | payer MEDICARE ==
[~2023-10-18] VITALS: Ht 157.5 cm; Wt 73.0 kg
[~2023-10-18 12:32] MED LIST changes: +ALBUTEROL SULFATE 2.5MG/0.5ML INH NEB SOLN INH PRN; +EPINEPHrine INJ 1 MG/ML 1ML AMP IM PRN; +diphenhydrAMINE 50MG/ML VIAL IV PRN; +methylPREDNISolone 125MG 2ML VIAL IV PRN
[2023-10-18 12:55] VITALS: BP 144/63; O2SAT 93
[2023-10-18] MEDS ORDERED: NS 1,000 ML IV SCH (13:00)
[2023-10-18] MEDS: ACETAMINOPHEN TAB 650MG DOSE (2X325MG) PO ONE (13:06)
[2023-10-18] MEDS: diphenhydrAMINE 25MG CAP PO ONE (13:07)
[2023-10-18] MEDS: VEDOLIZUMAB 300 MG in NS 250 ML IV ONE (13:23)
[2023-10-18 14:00] VITALS: BP 122/59; O2SAT 95
== END 2023-10-18 14:00 ==
LOC: M INFU 12:32
PROVIDERS: ATTEND Internal Medicine Gastroenterology
DX: K51.90 Ulcerative colitis, unspecified, without complications (principal)

== ENCOUNTER 2023-11-28 06:16 | Emergency (ER) | payer MEDICARE ==
[~2023-11-28] VITALS: Ht 157.5 cm; Wt 69.8 kg
[~2023-11-28 06:16] MED LIST changes: -ALBUTEROL SULFATE 2.5MG/0.5ML INH NEB SOLN INH PRN; -EPINEPHrine INJ 1 MG/ML 1ML AMP IM PRN; -diphenhydrAMINE 50MG/ML VIAL IV PRN; -methylPREDNISolone 125MG 2ML VIAL IV PRN
[2023-11-28 07:27] LABS: BASO # 0.1 10^3/uL (0.0-0.2); BASO % 0.3 % (0.0-1.0); EOS # 0.3 10^3/uL (0.0-0.5); EOS % 1.9 % (0.0-3.0); HEMATOCRIT 35.8 % (36.0-47.0); HEMOGLOBIN 11.4 g/dl (12.0-15.5); LYMPH # 1.6 10^3/uL (1.5-5.0); LYMPH % 10.5 % (24.0-44.0); MEAN CORPUSCULAR HGB CONC 31.8 g/dl (32.0-36.5); MEAN CORPUSCULAR VOLUME 100.6 fl (80.0-96.0); MONO # 1.9 10^3/uL (0.0-0.8); MONO % 12.4 % (2.0-8.0); NEUTROPHILS # 11.5 10^3/uL (1.5-8.5); NEUTROPHILS % 74.6 % (36.0-66.0); PLATELET COUNT, AUTOMATED 248 10^3/uL (150-450); RED BLOOD COUNT 3.56 10^6/uL (4.00-5.40); WHITE BLOOD COUNT 15.5 10^3/uL (4.0-10.0)
[2023-11-28 07:48] LABS: BLOOD UREA NITROGEN 18 MG/DL (9-23); CARBON DIOXIDE LEVEL 27 MMOL/L (20-31); CHLORIDE LEVEL 106 MMOL/L (98-107); CK-MB VALUE MASS < 1.0 NG/ML (<3.6); CPK CREATINE PHOSPHOKINASE 16 U/L (34-145); CREATININE FOR GFR 0.95 MG/DL (0.55-1.30); GLUCOSE, FASTING 103 MG/DL (74-106); MB/CK RELATIVE INDEX 6.25 (< OR =4); POTASSIUM SERUM 4.2 MMOL/L (3.5-5.1); SODIUM LEVEL 138 MMOL/L (136-145)
[2023-11-28 09:23] LABS: CK-MB VALUE MASS < 1.0 NG/ML (<3.6)
[2023-11-28 09:27] LABS: CPK CREATINE PHOSPHOKINASE < 15 U/L (34-145)
[2023-11-28 10:35] VITALS: BP 117/54; TEMP 97; O2SAT 95
== END 2023-11-28 10:40 | disposition home or self-care (01) ==
LOC: M ED 06:16
DX: R55 Syncope and collapse (principal); I49.1 Atrial premature depolarization; Z86.711 Personal history of pulmonary embolism; Z87.891 Personal history of nicotine dependence; Z90.49 Acquired absence of other specified parts of digestive tract; Z79.82 Long term (current) use of aspirin; Z79.899 Other long term (current) drug therapy

== ENCOUNTER 2023-12-04 15:28 | Emergency (ER) | payer MEDICARE ==
[~2023-12-04] VITALS: Ht 157.5 cm; Wt 70.1 kg
[2023-12-04] MEDS ORDERED: PRED10TA2 (15:58)
[2023-12-04 16:45] LABS: BASO % 0.2 % (0.0-1.0); EOS # 0.1 10^3/uL (0.0-0.5); EOS % 0.6 % (0.0-3.0); HEMATOCRIT 39.9 % (36.0-47.0); HEMOGLOBIN 12.4 g/dl (12.0-15.5); LYMPH # 3.7 10^3/uL (1.5-5.0); LYMPH % 34.7 % (24.0-44.0); MEAN CORPUSCULAR HEMOGLOBIN 31.6 pg (27.0-33.0); MEAN CORPUSCULAR HGB CONC 31.1 g/dl (32.0-36.5); MEAN CORPUSCULAR VOLUME 101.5 fl (80.0-96.0); MONO # 1.2 10^3/uL (0.0-0.8); MONO % 11.7 % (2.0-8.0); NEUTROPHILS # 5.5 10^3/uL (1.5-8.5); NEUTROPHILS % 52.4 % (36.0-66.0); PLATELET COUNT, AUTOMATED 353 10^3/uL (150-450); RED BLOOD COUNT 3.93 10^6/uL (4.00-5.40); WHITE BLOOD COUNT 10.5 10^3/uL (4.0-10.0)
[2023-12-04 17:05] LABS: LIPASE 18 U/L (12-53)
[2023-12-04 17:15] LABS: ALBUMIN 3.2 G/DL (3.2-5.2); ALKALINE PHOSPHATASE 72 U/L (46-116); ALT/SGPT 11 U/L (7.0-40); AST/SGOT < 8 U/L (<34); BILIRUBIN,DIRECT < 0.1 MG/DL (<0.4); BILIRUBIN,TOTAL 0.3 MG/DL (0.3-1.2); BLOOD UREA NITROGEN 14 MG/DL (9-23); CALCIUM LEVEL 9.3 MG/DL (8.3-10.6); CARBON DIOXIDE LEVEL 29 MMOL/L (20-31); CHLORIDE LEVEL 105 MMOL/L (98-107); CREATININE FOR GFR 0.84 MG/DL (0.55-1.30); GLOMERULAR FILTRATION RATE > 60.0 (>32); GLUCOSE, FASTING 88 MG/DL (74-106); POTASSIUM SERUM 4.7 MMOL/L (3.5-5.1); SODIUM LEVEL 138 MMOL/L (136-145); TOTAL PROTEIN 7.7 G/DL (5.7-8.2)
[2023-12-04 19:27] LABS: ERYTHROCYTE SEDIMENTATION RATE 47 mm/hr (0-30)
[2023-12-04 22:04] VITALS: BP 155/75; TEMP 97.8; O2SAT 96
== END 2023-12-04 21:59 | disposition home or self-care (01) ==
LOC: M ED 15:28
DX: R19.7 Diarrhea, unspecified (principal); K51.90 Ulcerative colitis, unspecified, without complications; Z86.711 Personal history of pulmonary embolism; Z87.891 Personal history of nicotine dependence; Z90.49 Acquired absence of other specified parts of digestive tract; Z79.82 Long term (current) use of aspirin; Z79.899 Other long term (current) drug therapy; Z79.52 Long term (current) use of systemic steroids

== ENCOUNTER → 2024-01-23 | Outpatient (REF) | payer MEDICARE ==
[~2024-01-23] MED LIST changes: -3 SEMIS2 XX; +BLOO-175 XX; +PRED10TA2
[2024-01-23 18:20] LABS: APPEARANCE, URINE CLEAR (CLEAR); BACTERIA, URINE AUTO 1+ (NEGATIVE); BILIRUBIN, URINE AUTO NEGATIVE (NEGATIVE); BLOOD, URINE BLOOD NEGATIVE (NEGATIVE); COLOR, URINE YELLOW (YELLOW); GLUCOSE, URINE (UA) AUTO NEGATIVE (NEGATIVE); KETONE, URINE AUTO NEGATIVE (NEGATIVE); LEUKOCYTE ESTERASE, URINE AUTO NEGATIVE (NEGATIVE); MUCUS, URINE SMALL (NEGATIVE); NITRITE, URINE AUTO POSITIVE (NEGATIVE); PROTEIN, URINE AUTO NEGATIVE (NEGATIVE); RBC, URINE AUTO 0 /HPF (0-3); SPECIFIC GRAVITY URINE AUTO 1.009 (1.002-1.035); SQUAMOUS EPITHELIAL CELL UR AU 1 /HPF (0-6); UROBILINOGEN, URINE AUTO 0.2 mg/dL (0.0-2.0); WBC, URINE AUTO 1 /HPF (0-3)
== END ==
LOC: M LAB REF 17:33
PROVIDERS: ATTEND Internal Medicine Gastroenterology
DX: N39.0 Urinary tract infection, site not specified (principal)

== ENCOUNTER 2024-03-18 19:01 | Inpatient (IN) | payer MEDICARE ==
[~2024-03-18] VITALS: Ht 157.5 cm; Wt 68.5 kg
[~2024-03-18 19:01] MED LIST changes: -POTA10CA70; +POTA10CA70 PO; -PRED10TA2
[2024-03-18 20:04] LABS: BASO % 0.2 % (0.0-1.0); EOS % 0.1 % (0.0-3.0); LYMPH # 1.8 10^3/uL (1.5-5.0); LYMPH % 10.6 % (24.0-44.0); MEAN CORPUSCULAR HEMOGLOBIN 31.6 pg (27.0-33.0); MEAN CORPUSCULAR HGB CONC 32.4 g/dl (32.0-36.5); MEAN CORPUSCULAR VOLUME 97.7 fl (80.0-96.0); MONO # 1.7 10^3/uL (0.0-0.8); MONO % 10.3 % (2.0-8.0); NEUTROPHILS # 13.2 10^3/uL (1.5-8.5); NEUTROPHILS % 78.3 % (36.0-66.0); PLATELET COUNT, AUTOMATED 343 10^3/uL (150-450); RED BLOOD COUNT 3.48 10^6/uL (4.00-5.40); WHITE BLOOD COUNT 16.8 10^3/uL (4.0-10.0)
[2024-03-18 20:56] LABS: KETONE, URINE AUTO RFX NEGATIVE (NEGATIVE); LEUKOCYTE ESTERASE UR AUTO RFX 1+ (NEGATIVE); MUCUS, URINE RFX SMALL (NEGATIVE); NITRITE, URINE AUTO RFX NEGATIVE (NEGATIVE); RBC, URINE AUTO RFX 1 /HPF (0-3); SQUAM EPITHELIAL CELL UR AURFX 0 /HPF (0-6); WBC, URINE AUTO RFX 15 /HPF (0-3)
[2024-03-18 21:42] LABS: LIPASE 15 U/L (12-53)
[2024-03-18 21:47] LABS: ALBUMIN 2.4 G/DL (3.2-5.2); ALKALINE PHOSPHATASE 62 U/L (35-104); ALT/SGPT < 9 U/L (7.0-40); AST/SGOT 14 U/L (<34); BILIRUBIN,TOTAL 0.2 MG/DL (0.3-1.2); BLOOD UREA NITROGEN 12 MG/DL (9-23); CALCIUM LEVEL 8.2 MG/DL (8.3-10.6); CARBON DIOXIDE LEVEL 23 MMOL/L (20-31); CHLORIDE LEVEL 102 MMOL/L (98-107); CREATININE FOR GFR 0.81 MG/DL (0.55-1.30); GLOMERULAR FILTRATION RATE > 60.0 (>32); GLUCOSE, FASTING 117 MG/DL (74-106); POTASSIUM SERUM 4.5 MMOL/L (3.5-5.1); SODIUM LEVEL 136 MMOL/L (136-145); TOTAL PROTEIN 6.7 G/DL (5.7-8.2)
[2024-03-18] MEDS: NS 500 ML IV ONE (21:55)
[2024-03-18] MEDS ORDERED: ISOVUE-370 76% 100ML VIAL As Ordered ONE (21:56)
[2024-03-19] MEDS: methylPREDNISolone 40MG 1ML VIAL IV ONE (00:31)
[2024-03-19] MEDS: PIPERACILLIN/TAZOBACTAM SOD 4.5 GM in DEXTROSE 5% (D5W) ADV/MINI-BAG 50 ML IV ONE (00:31)
[2024-03-19 00:32] LABS: PROCALCITONIN 0.09 ng/ml
[2024-03-19] MEDS ORDERED: ACETAMINOPHEN 325 MG TAB PO PRN (01:20)
[2024-03-19] MEDS ORDERED: MAALOX 30 ML SUSP *UDC PO PRN (01:20)
[2024-03-19] MEDS ORDERED: HUMI40IN2 INJ (01:31)
[2024-03-19] MEDS ORDERED: HOME MED LIST COMPLETE! XX SCH (01:35)
[2024-03-19 03:27] VITALS: BP 104/63; TEMP 97.7; O2SAT 95
[2024-03-19] MEDS: LR 1,000 ML IV ONE (03:44)
[2024-03-19 05:22] LABS: HEMATOCRIT 32.4 % (36.0-47.0); HEMOGLOBIN 10.1 g/dl (12.0-15.5); MEAN CORPUSCULAR HEMOGLOBIN 30.6 pg (27.0-33.0); MEAN CORPUSCULAR HGB CONC 31.2 g/dl (32.0-36.5); MEAN CORPUSCULAR VOLUME 98.2 fl (80.0-96.0); PLATELET COUNT, AUTOMATED 307 10^3/uL (150-450); WHITE BLOOD COUNT 9.5 10^3/uL (4.0-10.0)
[2024-03-19 05:50] LABS: MAGNESIUM LEVEL 1.5 MG/DL (1.8-2.4)
[2024-03-19] MEDS: LR 1,000 ML IV SCH (06:12)
[2024-03-19 06:31] LABS: C REACTIVE PROTEIN QUANTITATIV 7.32 MG/DL (<1.0)
[2024-03-19 07:26] LABS: ERYTHROCYTE SEDIMENTATION RATE 53 mm/hr (0-30)
[2024-03-19] MEDS: MAG SULF 1GM/100ML (MAG RUN) 1 GM in IV 1 EA IV SCH (08:37)
[2024-03-19] MEDS: POTASSIUM CHLORIDE 10MEQ SR TABLET PO SCH (08:37)
[2024-03-19] MEDS: LACTOBACILLUS ACIDOPHILUS CAP (BACID) PO SCH ×2 (08:37→20:55)
[2024-03-19] MEDS: HEPARIN SOD (PORCINE) 5000UNITS/ML 1ML VIAL/SYRINGE SC SCH (08:37)
[2024-03-19] MEDS: methylPREDNISolone 40MG 1ML VIAL IV SCH ×2 (08:38→18:14)
[2024-03-19 12:57] LABS: BLOOD UREA NITROGEN 12 MG/DL (9-23); CALCIUM LEVEL 8.6 MG/DL (8.3-10.6); CARBON DIOXIDE LEVEL 24 MMOL/L (20-31); CHLORIDE LEVEL 104 MMOL/L (98-107); CREATININE FOR GFR 0.71 MG/DL (0.55-1.30); GLOMERULAR FILTRATION RATE > 60.0 (>32); GLUCOSE, FASTING 162 MG/DL (74-106); POTASSIUM SERUM 4.3 MMOL/L (3.5-5.1); SODIUM LEVEL 139 MMOL/L (136-145)
[2024-03-19 16:15] VITALS: BP 108/62; TEMP 97.7; O2SAT 97
[2024-03-19 20:25] VITALS: BP 121/51; TEMP 97.9; O2SAT 97
[2024-03-19] MEDS: ASPIRIN 81MG ENTERIC TABLET PO SCH (20:55)
[2024-03-19] MEDS: MESALAMINE 400 MG CAPSULE DELAYED RELEASE (DELZICOL) PO SCH (20:56)
[2024-03-20 03:38] VITALS: BP 124/56; TEMP 97.5; O2SAT 96
[2024-03-20 05:22] LABS: BASO % 0.1 % (0.0-1.0); HEMATOCRIT 28.6 % (36.0-47.0); HEMOGLOBIN 9.1 g/dl (12.0-15.5); LYMPH # 1.8 10^3/uL (1.5-5.0); LYMPH % 17.6 % (24.0-44.0); MEAN CORPUSCULAR HEMOGLOBIN 31.6 pg (27.0-33.0); MEAN CORPUSCULAR HGB CONC 31.8 g/dl (32.0-36.5); MEAN CORPUSCULAR VOLUME 99.3 fl (80.0-96.0); MONO # 1.1 10^3/uL (0.0-0.8); MONO % 10.5 % (2.0-8.0); NEUTROPHILS # 7.4 10^3/uL (1.5-8.5); NEUTROPHILS % 70.8 % (36.0-66.0); PLATELET COUNT, AUTOMATED 296 10^3/uL (150-450); RED BLOOD COUNT 2.88 10^6/uL (4.00-5.40); WHITE BLOOD COUNT 10.4 10^3/uL (4.0-10.0)
[2024-03-20 05:41] LABS: C REACTIVE PROTEIN QUANTITATIV 4.22 MG/DL (<1.0)
[2024-03-20 05:47] LABS: ALKALINE PHOSPHATASE 50 U/L (35-104); ALT/SGPT < 9 U/L (7.0-40); AST/SGOT 12 U/L (<34); BILIRUBIN,TOTAL < 0.2 MG/DL (0.3-1.2); BLOOD UREA NITROGEN 13 MG/DL (9-23); CALCIUM LEVEL 8.1 MG/DL (8.3-10.6); CARBON DIOXIDE LEVEL 23 MMOL/L (20-31); CHLORIDE LEVEL 109 MMOL/L (98-107); CREATININE FOR GFR 0.67 MG/DL (0.55-1.30); GLOMERULAR FILTRATION RATE > 60.0 (>32); GLUCOSE, FASTING 146 MG/DL (74-106); POTASSIUM SERUM 4.6 MMOL/L (3.5-5.1); SODIUM LEVEL 141 MMOL/L (136-145); TOTAL PROTEIN 5.9 G/DL (5.7-8.2)
[2024-03-20] MEDS ORDERED: RISATAB3 PO (10:57)
[2024-03-20] MEDS ORDERED: PRED10TA2 PO (10:57)
[2024-03-20] MEDS ORDERED: CEFD1CAP9 PO (10:57)
[2024-03-20 12:00] VITALS: BP 121/55; TEMP 97.5; O2SAT 98
== END 2024-03-20 13:14 | disposition home or self-care (01) | DRG 386 ==
LOC: M ED 19:01 → EDBD 19:01 → M ED INP 19:02 → M MSPAV 03-19 03:25 → OBSVTOIN 03-19 10:53
PROVIDERS: ADMIT Student in an Organized Health Care Education/Training Program; ATTEND Student in an Organized Health Care Education/Training Program
DX: K51.90 Ulcerative colitis, unspecified, without complications (principal); A08.0 Rotaviral enteritis; E86.0 Dehydration; R53.1 Weakness; N30.90 Cystitis, unspecified without hematuria; B96.20 Unspecified Escherichia coli [E. coli] as the cause of diseases classified elsewhere; I71.40 Abdominal aortic aneurysm, without rupture, unspecified; Z86.711 Personal history of pulmonary embolism; Z85.3 Personal history of malignant neoplasm of breast; Z79.899 Other long term (current) drug therapy; Z79.82 Long term (current) use of aspirin; F03.90 Unspecified dementia, unspecified severity, without behavioral disturbance, psychotic disturbance, mood disturbance, and anxiety

== ENCOUNTER 2024-05-18 19:56 | Inpatient (IN) | payer MEDICARE ==
[~2024-05-18] VITALS: Ht 157.5 cm; Wt 64.7 kg
[~2024-05-18 19:56] MED LIST changes: +CEFD1CAP9 PO; +HUMI40IN2 INJ
[2024-05-18 20:49] LABS: KETONE, URINE AUTO RFX NEGATIVE (NEGATIVE); MUCUS, URINE RFX SMALL (NEGATIVE); RBC, URINE AUTO RFX 1 /HPF (0-3); SQUAM EPITHELIAL CELL UR AURFX 1 /HPF (0-6); WBC, URINE AUTO RFX 9 /HPF (0-3)
[2024-05-18 21:01] LABS: LEUKOCYTE ESTERASE UR AUTO RFX TRACE (NEGATIVE); NITRITE, URINE AUTO RFX POSITIVE (NEGATIVE)
[2024-05-18] MEDS: cefTRIAXone SOD 1 GM in DEXTROSE 5% (D5W) ADV/MINI-BAG 50 ML IV ONE (21:32)
[2024-05-18 22:13] LABS: HEMATOCRIT 33.4 % (36.0-47.0); HEMOGLOBIN 10.6 g/dl (12.0-15.5); MEAN CORPUSCULAR HEMOGLOBIN 31.8 pg (27.0-33.0); MEAN CORPUSCULAR HGB CONC 31.7 g/dl (32.0-36.5); MEAN CORPUSCULAR VOLUME 100.3 fl (80.0-96.0); PLATELET COUNT, AUTOMATED 355 10^3/uL (150-450); RED BLOOD COUNT 3.33 10^6/uL (4.00-5.40); WHITE BLOOD COUNT 13.2 10^3/uL (4.0-10.0)
[2024-05-18 22:32] LABS: ANISOCYTOSIS 1+; ATYPICAL LYMPH 1 % (0-5); EOSINOPHILS 1 % (0-3); LYMPHOCYTES 38 % (16-44); MONOCYTES 12 % (0-5); NEUTROPHILS 48 % (28-66); PLATELET ESTIMATE NORMAL (NORMAL)
[2024-05-18 22:36] LABS: ALBUMIN 2.5 G/DL (3.2-5.2); ALKALINE PHOSPHATASE 70 U/L (35-104); ALT/SGPT 10 U/L (7.0-40); AST/SGOT 15 U/L (<34); BILIRUBIN,DIRECT < 0.1 MG/DL (<0.4); BILIRUBIN,TOTAL 0.3 MG/DL (0.3-1.2); BLOOD UREA NITROGEN 16 MG/DL (9-23); CARBON DIOXIDE LEVEL 27 MMOL/L (20-31); CHLORIDE LEVEL 106 MMOL/L (98-107); CREATININE FOR GFR 0.82 MG/DL (0.55-1.30); GLOMERULAR FILTRATION RATE > 60.0 (>32); GLUCOSE, FASTING 83 MG/DL (74-106); POTASSIUM SERUM 4.8 MMOL/L (3.5-5.1); SODIUM LEVEL 139 MMOL/L (136-145); TOTAL PROTEIN 6.4 G/DL (5.7-8.2)
[2024-05-18 22:38] LABS: THYROID STIMULATING HORMONE 1.439 uIU/ML (0.55-4.78)
[2024-05-18] MEDS ORDERED: MAALOX 30 ML SUSP *UDC PO PRN (23:55)
[2024-05-18] MEDS ORDERED: ACETAMINOPHEN 325 MG TAB PO PRN (23:55)
[2024-05-19] MEDS ORDERED: CYAN500T20 PO (02:47)
[2024-05-19] MEDS ORDERED: HOME MED LIST COMPLETE! XX SCH (02:50)
[2024-05-19 05:58] LABS: HEMATOCRIT 31.5 % (36.0-47.0); HEMOGLOBIN 9.9 g/dl (12.0-15.5); MEAN CORPUSCULAR HEMOGLOBIN 31.1 pg (27.0-33.0); MEAN CORPUSCULAR HGB CONC 31.4 g/dl (32.0-36.5); MEAN CORPUSCULAR VOLUME 99.1 fl (80.0-96.0); PLATELET COUNT, AUTOMATED 305 10^3/uL (150-450); RED BLOOD COUNT 3.18 10^6/uL (4.00-5.40); WHITE BLOOD COUNT 12.3 10^3/uL (4.0-10.0)
[2024-05-19 06:25] LABS: ALBUMIN 2.2 G/DL (3.2-5.2); ALKALINE PHOSPHATASE 60 U/L (35-104); ALT/SGPT 12 U/L (7.0-40); AST/SGOT 30 U/L (<34); BILIRUBIN,TOTAL 0.3 MG/DL (0.3-1.2); BLOOD UREA NITROGEN 14 MG/DL (9-23); CALCIUM LEVEL 7.6 MG/DL (8.3-10.6); CARBON DIOXIDE LEVEL 24 MMOL/L (20-31); CHLORIDE LEVEL 106 MMOL/L (98-107); CREATININE FOR GFR 0.75 MG/DL (0.55-1.30); GLOMERULAR FILTRATION RATE > 60.0 (>32); GLUCOSE, FASTING 96 MG/DL (74-106); MAGNESIUM LEVEL 1.7 MG/DL (1.8-2.4); POTASSIUM SERUM 4.7 MMOL/L (3.5-5.1); SODIUM LEVEL 138 MMOL/L (136-145); TOTAL PROTEIN 5.9 G/DL (5.7-8.2)
[2024-05-19 08:30] VITALS: BP 86/61; TEMP 98.2; O2SAT 96
[2024-05-19] MEDS: MESALAMINE 400 MG CAPSULE DELAYED RELEASE (DELZICOL) PO SCH (09:00)
[2024-05-19] MEDS: LR 1,000 ML IV SCH (11:37)
[2024-05-19 11:58] VITALS: BP 96/56; TEMP 97.9; O2SAT 90
[2024-05-19 16:01] VITALS: BP 100/55; TEMP 97.5; O2SAT 94
[2024-05-19] MEDS ORDERED: ISOVUE-370 76% 100ML VIAL As Ordered ONE (18:43)
[2024-05-19] MEDS: ASPIRIN 81MG ENTERIC TABLET PO SCH (20:18)
[2024-05-19] MEDS: PIPERACILLIN/TAZOBACTAM SOD 4.5 GM in DEXTROSE 5% (D5W) ADV/MINI-BAG 50 ML IV SCH (20:19)
[2024-05-19 20:43] VITALS: BP 110/75; TEMP 98.2; O2SAT 90
[2024-05-19] MEDS ORDERED: cefTRIAXone SOD 1 GM in DEXTROSE 5% (D5W) ADV/MINI-BAG 50 ML IV SCH (21:00)
[2024-05-19 23:50] VITALS: BP 114/73; TEMP 98.2; O2SAT 92
[2024-05-20 04:19] VITALS: BP 117/72; TEMP 98.8; O2SAT 90
[2024-05-20 07:34] LABS: BASO % 0.2 % (0.0-1.0); EOS # 0.4 10^3/uL (0.0-0.5); EOS % 3.5 % (0.0-3.0); HEMATOCRIT 29.1 % (36.0-47.0); HEMOGLOBIN 9.3 g/dl (12.0-15.5); LYMPH # 5.2 10^3/uL (1.5-5.0); LYMPH % 51.5 % (24.0-44.0); MEAN CORPUSCULAR HEMOGLOBIN 31.6 pg (27.0-33.0); MONO # 1.4 10^3/uL (0.0-0.8); MONO % 14.2 % (2.0-8.0); NEUTROPHILS # 3.1 10^3/uL (1.5-8.5); NEUTROPHILS % 30.3 % (36.0-66.0); PLATELET COUNT, AUTOMATED 274 10^3/uL (150-450); RED BLOOD COUNT 2.94 10^6/uL (4.00-5.40); WHITE BLOOD COUNT 10.1 10^3/uL (4.0-10.0)
[2024-05-20 07:50] LABS: CALCIUM LEVEL 7.7 MG/DL (8.3-10.6); CREATININE FOR GFR 0.97 MG/DL (0.55-1.30); GLOMERULAR FILTRATION RATE 55.9 (>32); MAGNESIUM LEVEL 1.8 MG/DL (1.8-2.4)
[2024-05-20] MEDS: HEPARIN SOD (PORCINE) 5000UNITS/ML 1ML VIAL/SYRINGE SC SCH (08:15)
[2024-05-20 12:00] VITALS: BP 121/69; TEMP 98.1; O2SAT 94
[2024-05-20] MEDS ORDERED: PROBCAP14 PO (12:28)
[2024-05-20] MEDS ORDERED: CEFD1CAP9 PO (12:28)
== END 2024-05-20 13:40 | disposition home or self-care (01) | DRG 871 ==
LOC: M ED 19:56 → EDBD 19:56 → M ED INP 23:21 → M MS5PR 05-19 08:25
PROVIDERS: ADMIT Student in an Organized Health Care Education/Training Program; ATTEND Student in an Organized Health Care Education/Training Program
DX: A41.9 Sepsis, unspecified organism (principal); G93.41 Metabolic encephalopathy; N39.0 Urinary tract infection, site not specified; K51.90 Ulcerative colitis, unspecified, without complications; B96.20 Unspecified Escherichia coli [E. coli] as the cause of diseases classified elsewhere; Z85.3 Personal history of malignant neoplasm of breast; Z90.11 Acquired absence of right breast and nipple; Z86.711 Personal history of pulmonary embolism; Z90.49 Acquired absence of other specified parts of digestive tract; Z90.79 Acquired absence of other genital organ(s); Z87.891 Personal history of nicotine dependence; Z79.82 Long term (current) use of aspirin; Z79.899 Other long term (current) drug therapy

== ENCOUNTER → 2024-05-29 | Outpatient (REF) | payer MEDICARE ==
[~2024-05-29] MED LIST changes: +CYAN500T20 PO; +PROBCAP14 PO
== END ==
LOC: M LAB REF 17:22
PROVIDERS: ATTEND Internal Medicine Gastroenterology
DX: R19.7 Diarrhea, unspecified (principal)

== ENCOUNTER 2024-06-03 12:23 | Emergency (ER) | payer MEDICARE ==
[~2024-06-03] VITALS: Ht 157.5 cm; Wt 66.8 kg
[2024-06-03 13:32] LABS: KETONE, URINE AUTO RFX NEGATIVE (NEGATIVE); MUCUS, URINE RFX SMALL (NEGATIVE); NITRITE, URINE AUTO RFX NEGATIVE (NEGATIVE); RBC, URINE AUTO RFX 4 /HPF (0-3); SQUAM EPITHELIAL CELL UR AURFX 0 /HPF (0-6); YEAST LIKE CELL URINE AUTO RFX SMALL
[2024-06-03 13:35] LABS: LEUKOCYTE ESTERASE UR AUTO RFX 3+ (NEGATIVE); WBC, URINE AUTO RFX 84 /HPF (0-3)
[2024-06-03 16:00] LABS: CALCIUM LEVEL 8.7 MG/DL (8.3-10.6); CREATININE FOR GFR 0.98 MG/DL (0.55-1.30); GLOMERULAR FILTRATION RATE 55.2 (>32); POTASSIUM SERUM 4.6 MMOL/L (3.5-5.1)
[2024-06-03 16:22] LABS: HEMOGLOBIN 11.1 g/dl (12.0-15.5); MEAN CORPUSCULAR HEMOGLOBIN 31.1 pg (27.0-33.0); MEAN CORPUSCULAR HGB CONC 30.8 g/dl (32.0-36.5); MEAN CORPUSCULAR VOLUME 100.8 fl (80.0-96.0); PLATELET COUNT, AUTOMATED 347 10^3/uL (150-450); RED BLOOD COUNT 3.57 10^6/uL (4.00-5.40)
[2024-06-03 17:11] LABS: ATYPICAL LYMPH 5 % (0-5); EOSINOPHILS 2 % (0-3); LYMPHOCYTES 49 % (16-44); MONOCYTES 9 % (0-5); NEUTROPHILS 35 % (28-66)
[2024-06-03 17:12] LABS: ANISOCYTOSIS 1+
[2024-06-03 17:13] LABS: PLATELET ESTIMATE NORMAL (NORMAL)
[2024-06-03 17:30] VITALS: BP 122/59; TEMP 96.4; O2SAT 96
[2024-06-03] MEDS ORDERED: CIPR250T26 PO (17:31)
== END 2024-06-03 17:45 | disposition home or self-care (01) ==
LOC: M ED 12:23
DX: N39.0 Urinary tract infection, site not specified (principal); Z79.1 Long term (current) use of non-steroidal anti-inflammatories (NSAID); Z79.899 Other long term (current) drug therapy

== ENCOUNTER → 2024-06-17 | Outpatient (REF) | payer MEDICARE ==
[~2024-06-17] MED LIST changes: +CIPR250T26 PO
[2024-06-17 16:01] LABS: APPEARANCE, URINE HAZY (CLEAR); BACTERIA, URINE AUTO NEGATIVE (NEGATIVE); BILIRUBIN, URINE AUTO NEGATIVE (NEGATIVE); BLOOD, URINE BLOOD NEGATIVE (NEGATIVE); COLOR, URINE YELLOW (YELLOW); GLUCOSE, URINE (UA) AUTO NEGATIVE (NEGATIVE); GRANULAR CAST, URINE AUTO 4 /LPF; KETONE, URINE AUTO NEGATIVE (NEGATIVE); LEUKOCYTE ESTERASE, URINE AUTO 2+ (NEGATIVE); MUCUS, URINE SMALL (NEGATIVE); NITRITE, URINE AUTO NEGATIVE (NEGATIVE); PROTEIN, URINE AUTO NEGATIVE (NEGATIVE); RBC, URINE AUTO 3 /HPF (0-3); SPECIFIC GRAVITY URINE AUTO 1.009 (1.002-1.035); SQUAMOUS EPITHELIAL CELL UR AU 1 /HPF (0-6); UROBILINOGEN, URINE AUTO 0.2 mg/dL (0.0-2.0); WBC, URINE AUTO 92 /HPF (0-3); YEAST LIKE CELL URINE AUTO MODERATE
== END ==
LOC: M LAB REF 15:32
PROVIDERS: ATTEND Internal Medicine Gastroenterology
DX: N39.0 Urinary tract infection, site not specified (principal)